=== PATIENT | male | born 1960 | race Caucasian/White ===

== ENCOUNTER 2019-01-09 01:09 | Inpatient (IN) ==
[2019-01-09] MEDS ORDERED: NS 1,000 ML IV ONE (01:42)
[2019-01-09 02:13] LABS: BASO# 0.04 X1000 (0.0-0.2); BASO% 0.2 % (0.0-0.8); EOS# 0.19 X1000 (0.0-0.7); EOS% 0.8 % (0.0-10.0); HEMOGLOBIN 15.6 g/dL (14.0-18.0); IMM GRAN# 0.13 X1000 (0.0-0.04); IMM GRAN% 0.6 % (0.0-0.5); LYMPH# 2.58 X1000 (1.2-3.4); MCH 28.7 PG (27-31); MCHC 32.5 g/dL (33-37); MCV 88.2 FL (81-99); MONO# 1.71 X1000 (0.11-0.59); MONO% 7.3 % (1.7-9.3); MPV 8.4 FL (7.4-10.4); NEUT# 18.86 X1000 (1.4-6.5); NEUT% 80.1 % (42.2-75.2); PLT 226 X1000 (130-400); RBC 5.44 XMIL (4.7-6.1); RDW 15.2 % (11.5-14.5); WBC 23.51 X1000 (4.8-10.8)
[2019-01-09 02:38] LABS: INR 1.23; PROTIME 15.7 Seconds (11.0-16.0)
[2019-01-09 02:39] LABS: PTT 30.9 Seconds (22.3-41.8)
[2019-01-09 04:11] LABS: AGAP 9; ALB/GLOB RATIO 1.1; ALBUMIN 3.4 g/dL (3.5-5.0); ALKALINE PHOSPHATASE 51 U/L (32-122); BUN 9 mg/dL (8-22); CALCIUM 8.5 mg/dL (8.8-10.2); CHLORIDE 101 mmol/L (98-107); COSMO 274; CREATININE 0.6 mg/dL (0.7-1.2); GLUCOSE 95 mg/dL (70-104); GOT 24 U/L (10-34); GPT 22 U/L (10-44); POTASSIUM 3.8 mmol/L (3.5-5.1); SODIUM 138 mmol/L (136-145); TCO2 28 mmol/L (25-35); TOTAL BILIRUBIN 0.72 mg/dL (0.20-1.00); TOTAL PROTEIN 6.4 g/dL (6.3-8.3)
[2019-01-09] MEDS ORDERED: TORADOL IV ONE (04:16)
[2019-01-09 04:17] LABS: URINE SOURCE CLEAN CATCH
[2019-01-09 04:32] LABS: BILIRUBIN URINE NEGATIVE (NEGATIVE); BLOOD URINE NEGATIVE (NEGATIVE); COLOR YELLOW; GLUCOSE URINE NEGATIVE (NEGATIVE); KETONE URINE NEGATIVE (NEGATIVE); LEUKOCYTES URINE NEGATIVE (NEGATIVE); NITRITE URINE NEGATIVE (NEGATIVE); PROTEIN URINE TRACE mg/dL (NEGATIVE); SP GRAVITY URINE 1.031; TURBIDITY URINE CLEAR (CLEAR); UROBILINOGEN URINE 4 mg/dL (NORMAL)
[2019-01-09 04:34] LABS: UR EPITHELIAL CELLS <10 /HPF (<10); URINE BACTERIA NEGATIVE /HPF; URINE RBC <10 /HPF (<10); URINE WBC <10 /HPF (<10)
[2019-01-09 04:50] LABS: UR AMPHETAMINES QUAL NONE DETECTED (NONE DETECT); UR BARBITUATES QUAL NONE DETECTED (NONE DETECT); UR BENZODIAZEPIN QUAL NONE DETECTED (NONE DETECT); UR CANNABINOIDS QUAL PRESUMPTIVE POSITIVE (NONE DETECT); UR COCAINE QUAL NONE DETECTED (NONE DETECT); UR METHADONE QUAL NONE DETECTED (NONE DETECT); UR OPIATES QUAL PRESUMPTIVE POSITIVE (NONE DETECT); UR OXYCODONE QUAL NONE DETECTED (NONE DETECT); UR PCP QUAL NONE DETECTED (NONE DETECT)
[2019-01-09] MEDS ORDERED: ROCEPHIN 1 GM in NS 50 ML IV ONE ×2 (04:50→05:00)
[2019-01-09] MEDS ORDERED: ZITHROMAX 500 MG/NS 500 MG/250 ML IVPB IV ONE (04:51)
--- NOTE | 2019-01-09 04:54 | PROVIDER DOCUMENTATION ---
This chart was entered by James Zavaleta Scribe, acting as scribe for Michael Gloria MD. HPI-General Adult - General Chief Complaint: Stroke-Like Symptoms Stated Complaint: STROKE LIKE S/S Time Seen by Provider: 01/09/19 01:22 Source: patient, EMS Allergies/Adverse Reactions: Patient Allergies Allergy/AdvReac Type Severity Reaction Status Date / Time No Known Allergies Allergy Verified 01/09/19 02:31 Home Medications: Home Medication List Medication Instructions Recorded Confirmed Last Taken Type Bisacodyl [Dulcolax] 5 mg PO DAILY tablet 08/11/17 01/09/19 01/08/19 08:00 Rx Levetiracetam [Keppra] 750 mg PO BID #60 tab 08/11/17 01/09/19 01/08/19 20:00 Rx Dronabinol [Marinol] 2.5 mg PO BID 12/21/17 01/09/19 01/08/19 20:00 History Mirtazapine 30 mg PO QHS 12/21/17 01/09/19 01/08/19 21:00 History Nicotine Patch [Nicoderm Patch] 21 mg TD DAILY patch.td24 08/30/18 01/09/19 01/08/19 09:00 Rx Folic Acid 1 mg PO DAILY 09/19/18 01/09/19 01/08/19 08:00 History Multivitamin [Multi-Day Vitamins] 1 tab PO DAILY 09/19/18 01/09/19 01/08/19 08:00 History Omeprazole [Prilosec] 40 mg PO ACB 09/19/18 01/09/19 01/08/19 06:00 History Budesonide/Formoterol Fumarate 2 puff INHALATION BID 01/09/19 01/09/19 01/08/19 20:00 History [Symbicort 80-4.5 Mcg Inhaler] Docusate Sodium [Colace] 200 mg PO BID 01/09/19 01/09/19 01/08/19 21:00 History Duloxetine HCl 30 mg PO BID 01/09/19 01/09/19 01/08/19 21:00 History Guaifenesin E.r. [Mucinex] 600 mg PO Q12HR 01/09/19 01/09/19 01/08/19 21:00 History Hydrocodone/Acetaminophen [[place] 1 ea PO Q6H PRN PRN 01/09/19 01/09/19 01/08/19 23:50 History 5-325 Tablet] Ipratropium/Albuterol Sulfate 3 ml INHALATION Q6H 01/09/19 01/09/19 01/09/19 00:00 History [Iprat-Albut 0.5-3(2.5) mg/3 ml] Lorazepam [Ativan] 0.5 mg PO QPM PRN PRN 01/09/19 01/09/19 01/08/19 18:00 History Lorazepam [Ativan] 0.5 mg PO TID 01/09/19 01/09/19 01/08/19 21:00 History Melatonin 5 mg PO QHS 01/09/19 01/09/19 01/08/19 20:00 History Prednisone 20 mg PO DAILY 01/09/19 01/09/19 01/08/19 09:00 History Protein Hydrolysate,Milk [Liquid 30 ml PO BID 01/09/19 01/09/19 01/08/19 20:00 History Protein Fortifier] Quetiapine Fumarate 25 mg PO HS 01/09/19 01/09/19 01/08/19 20:00 History - History of Present Illness -Gen Adult Nature of Presenting Problems: Pt is a 58 yom who presents to the ED via EMS with a CC of stroke-like symptoms. Pt reports his called EMS. EMS reports the pt was given a breathing treatment and a [place] at home. EMS reports the pt's stated the pt started having slurred speech and left sided weakness tonight. EMS reports the stated the pt was acting groggy and was tachycardic so she called EMS. Upon examination the pt states he isn't sure why he is here and states he is not currently in any pain or discomfort. Location of Pain/Injury: reports: none Quality of Pain: reports: none Severity: reports: mild Onset/Duration: reports: just prior to arrival, 1-3 hours ago Timing: reports: still present, improving Similar Symptoms Previously?: No Recently seen or treated by another doctor?: No Review of Systems - Adult - REVIEW OF SYSTEMS - ADULT Constitutional: reports: see HPI Eyes: reports: no symptoms reported Ears, Nose, Mouth & Throat: reports: no symptoms reported Cardiovascular: reports: see HPI Respiratory: reports: see HPI Gastrointestinal: reports: no symptoms reported Genitourinary: reports: no symptoms reported Musculoskeletal: reports: no symptoms reported Integumentary: reports: no symptoms reported Neurological: reports: see HPI Psychiatric: reports: no symptoms reported Endocrine: reports: no symptoms reported Hematologic/Lymphatic: reports: no symptoms reported Allergic/Immunologic: reports: no symptoms reported All Other Systems: Reviewed and Negative Past History - Adult - PAST MEDICAL HISTORY-ADULT Review of Records: reports: Old Records Reviewed, Nursing Assessment Review, Medications Reviewed, Social history reviewed & non-contributory. 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, spinal cord/brain injury Psychiatric: reports: denies history Endocrine/Immune: reports: denies history Other Conditions: reports: denies history - PRIOR SURGERIES/PROCEDURES Surgical/Procedure History: reports: appendectomy - IMMUNIZATION STATUS Childhood Immunizations: See Nurse Assessment Flu Vaccine: See Nurse Assessment - FAMILY HISTORY Family History: reviewed, not pertinent - SOCIAL HISTORY Smoking: non-smoker, quit greater than 1 year, cigarettes Substance Use: none/never, denies Alcohol Use Frequency: never Physical Exam-General - CONSTITUTIONAL General Appearance: alert, no apparent distress - EYES Eyes: PERRL/EOMI, pink conjunctivae - NECK Neck: non-tender, full range of motion - RESPIRATORY Respiratory: chest non-tender, lungs clear, normal breath sounds, no pleuratic chest pain, no respiratory distress, no accessory muscle use - CARDIOVASCULAR Cardiovascular: no edema, no gallop, no JVD, tachycardia - GASTROINTESTINAL (ABDOMEN) Abdominal Exam: non tender, soft - MUSCULOSKELETAL Extremity: normal range of motion, non-tender - SKIN Integumentary: normal color, warm/dry - NEUROLOGIC Neurologic: grossly normal - PSYCHIATRIC Psych/Mental Status: normal mood/affect, normal thought content, normal thought process, oriented x 3 Progress - PLAN OF CARE/RESULTS Progress/Plan/Lab Results: Vital Signs - 8 hr 01/09/19 01:15 Temperature 98.1 F Pulse Rate 115 H Respiratory Rate 21 Blood Pressure 154/103 O2 Sat by Pulse Oximetry 95 Laboratory Results - last 24 hr 01/09/19 01:13 POC Glucose 100 Orders Category Date Time Status CT HEAD W/O CONTRAST [CT] Stat Exams 01/09/19 01:06 Taken Pt has left sided weakness at baseline, pt new weakness for the patient, pt has elevated WBC, likely from PNA, will cover with abx and admit Result Diagrams: 01/09/19 01:55 01/09/19 01:55 - EKG 1 Time of EKG reading by physician:: 01:36 EKG Read and Signed by:: Michael Gloria EKG Interpretation (*Must complete 3 of following elements*): Abnormal Rate: 113 Rhythm: Sinus tachycardia Cuervo: left QRS: normal WA Interval: normal ST Wave: normal Departure - Departure Date of Disposition Decision: 01/09/19 Time of Disposition Decision: 04:53 DIAGNOSIS: Pneumonia Qualifiers: Pneumonia type: due to unspecified organism Laterality: right Lung location: upper lobe of lung Qualified Code(s): J18.1 - Lobar pneumonia, unspecified organism Disposition: ADMITTED INPATIENT 09 Certified Medical Emergency: Emergent Condition: Stable Referrals and Follow-Ups: Tyler Rojas [Primary Care Provider] - - Critical Care Note This patient required my direct & personal management of CC.: No Attestation - Physician/ DONNY Attestation Patient care was provided by Advanced Practice Provider:: No The physician spent face to face time with patient:: Yes Advanced Practice Provider documentation review:: Supervising physician onsite and consulted in the evaluation and care of this patient. The physician did have a face to face encounter with the patient. This chart was documented by the indicated scribe, (James Zavaleta, Demianibrandy) and accurately reflects the services I performed and decisions made by me, Michael Gloria MD, as attested by the provider's signature.
--- NOTE | 2019-01-09 05:15 | EKG Report ---
Test Performed on : 01/09/2019 01:35:21 AM Test Reason : Stroke like symptoms Blood Pressure : / mmHG Vent. Rate : 113 BPM Atrial Rate : 113 BPM P-R Int : 136 ms QRS Dur : 068 ms QT Int : 318 ms P-R-T Axes : 065 -41 052 degrees QTc Int : 436 ms Sinus tachycardia. Left axis deviation Abnormal ECG When compared with ECG of 17-AUG-2018 06:48, No significant change was found Unconfirmed Result
[2019-01-09] MEDS ORDERED: NORCO-5 PO PRN (05:43)
--- NOTE | 2019-01-09 06:36 | Diag Imaging Result Doc PS360 ---
CHEST-PORTABLE - 01/09/2019 INDICATION: stroke like symptoms COMPARISON: 08/27/2018 FINDINGS: Lung volumes are low similar to prior exams. There is some hazy atelectasis in the lung bases. No convincing infiltrates. Heart size and pulmonary vascularity is normal. IMPRESSION: Low lung volumes with hazy bibasilar atelectasis. Electronically signed by Andrey Sharma 01/09/2019 6:33 AM
--- NOTE | 2019-01-09 07:10 | Diag Imaging Result Doc PS360 ---
EXAM: CT HEAD W/O CONTRAST 01/09/2019 HISTORY: POSS CVA TECHNIQUE: This exam was performed using automated exposure control, adjustment of mA or kV according to patient size, and/or use of iterative reconstruction technique. COMMENT: There is extensive abnormal lucency in the white matter of both hemispheres with some cortical encephalomalacia present in the right temporal and frontal lobes. The mass effect which was present in the right parietal lobe at the time the previous study of 08/09/2017 due to a metastatic lesion is no longer present. As this study was performed without contrast, the possibility of residual metastatic disease cannot be excluded. There was only one weakly enhancing left occipital lesion on the MRI study of 11/12/2018. IMPRESSION: Diffuse leukoencephalopathy. Some cortical encephalomalacia is also present. The possibility of post radiation leukoencephalopathy cannot be excluded. Further evaluation with MRI may be desirable to exclude the possibility of coexisting or worsening metastatic disease. Electronically signed by Vasiliy Pedraza 01/09/2019 7:08 AM
--- NOTE | 2019-01-09 07:24 | Diag Imaging Result Doc PS360 ---
EXAM: CT THORAX W/O CONTRAST 01/09/2019 HISTORY: pna? TECHNIQUE: This exam was performed using automated exposure control, adjustment of mA or kV according to patient size, and/or use of iterative reconstruction technique. COMMENT: The current study is compared with the previous examination of 08/27/2018. There are some prominent aorticopulmonary window nodes which have increased in size since the previous study, the more posterior and larger of the nodes measuring in excess of 17 mm in long axis at this time compared to slightly over 13 mm previously. There is worsened bibasilar atelectasis and consolidation in the medial portion of the superior segment of the left lower lobe in comparison with the previous study. The cavitary appearing lesion anterior to the right hilum in the upper lobe is now a solid mass measuring in excess of 2.8 cm in anterior posterior dimension, compared to 2.3 cm previously. There is a somewhat lobulated nodule with possible spiculation in the left lower lobe on image 73 measuring in excess of 8 mm in diameter. This was either not present or much smaller at the time the previous examination. The appearance of the visualized portion of the abdomen has not changed significantly. There is no evidence of acute bony abnormality. IMPRESSION: 1. Right upper lobe mass. 2. Worsened mediastinal adenopathy. 3. Left lower lobe pulmonary nodule which may represent a metastasis. 4. Worsened bibasilar atelectasis and probable bronchopneumonia left lower lobe. Electronically signed by Vasiliy Pedraza 01/09/2019 7:22 AM
[2019-01-09] MEDS ORDERED: TYLENOL PO PRN (07:35)
[2019-01-09] MEDS ORDERED: VANCOMYCIN IV PER PHARMACY MISC SCH (07:35)
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
[2019-01-09] MEDS: NS 1,000 ML IV SCH (08:30)
[2019-01-09] MEDS ORDERED: NON-FORMULARY MED (Protein Hydrolysate,Milk [Liquid Protein Fortifier] 30 ML) PO SCH (09:00)
[2019-01-09] MEDS: SYMBICORT 80/4.5 MICROGM INHALER INH SCH ×2 (09:37→21:24)
[2019-01-09] MEDS: DUONEB (A & A) INH SCH ×3 (09:38→21:24)
[2019-01-09] MEDS ORDERED: VANCOMYCIN 2 GM in NS 500 ML IV ONE (10:00)
[2019-01-09] MEDS: MAXIPIME 1 GM in NS 50 ML IV SCH ×2 (10:35→23:52)
[2019-01-09] MEDS: FOLIC ACID PO SCH (10:36)
[2019-01-09] MEDS: DULCOLAX PO SCH (10:36)
[2019-01-09] MEDS: COLACE PO SCH ×2 (10:36→23:51)
[2019-01-09] MEDS: PRILOSEC PO SCH (10:36)
[2019-01-09] MEDS: PREDNISONE PO SCH (10:36)
[2019-01-09] MEDS: THERA M PLUS PO SCH (10:37)
[2019-01-09] MEDS: NICODERM PATCH TD SCH (10:37)
[2019-01-09] MEDS: KEPPRA PO SCH ×2 (10:37→23:51)
[2019-01-09] MEDS: CYMBALTA PO SCH ×2 (10:37→23:52)
[2019-01-09] MEDS: MUCINEX PO SCH ×2 (10:37→23:53)
[2019-01-09] MEDS: MARINOL PO SCH ×2 (10:37→23:53)
[2019-01-09] MEDS: LOVENOX SUBQ SCH (10:38)
[2019-01-09] MEDS: ATIVAN PO SCH ×3 (10:38→23:50)
[2019-01-09] MEDS: MELATONIN PO SCH (23:51)
[2019-01-09] MEDS: SEROQUEL PO SCH (23:52)
[2019-01-09] MEDS: REMERON PO SCH (23:52)
[2019-01-09] MEDS: VANCOMYCIN 1.5 GM in NS 250 ML IV SCH (23:52)
[2019-01-10] MEDS: NS 1,000 ML IV SCH ×2 (04:38→11:04)
[2019-01-10] MEDS: ZITHROMAX 500 MG/NS 500 MG/250 ML IVPB IV SCH (04:38)
[2019-01-10] MEDS: DUONEB (A & A) INH SCH ×4 (05:00→22:04)
[2019-01-10] MEDS: PRILOSEC PO SCH (06:36)
[2019-01-10 07:09] LABS: BASO# 0.02 X1000 (0.0-0.2); BASO% 0.2 % (0.0-0.8); EOS# 0.17 X1000 (0.0-0.7); EOS% 1.6 % (0.0-10.0); HEMATOCRIT 40.7 % (42.0-52.0); IMM GRAN# 0.06 X1000 (0.0-0.04); IMM GRAN% 0.6 % (0.0-0.5); LYMPH# 1.55 X1000 (1.2-3.4); LYMPH% 14.3 % (20.5-51.1); MCHC 31.9 g/dL (33-37); MCV 90.8 FL (81-99); MONO# 0.99 X1000 (0.11-0.59); MONO% 9.1 % (1.7-9.3); MPV 8.5 FL (7.4-10.4); NEUT# 8.07 X1000 (1.4-6.5); NEUT% 74.2 % (42.2-75.2); PLT 214 X1000 (130-400); RBC 4.48 XMIL (4.7-6.1); RDW 15.1 % (11.5-14.5); WBC 10.86 X1000 (4.8-10.8)
[2019-01-10 07:36] LABS: AGAP 10; BUN 8 mg/dL (8-22); CALCIUM 8.4 mg/dL (8.8-10.2); CHLORIDE 107 mmol/L (98-107); COSMO 277; CREATININE 0.4 mg/dL (0.7-1.2); ESTIMATED GFR > 60; GLUCOSE 94 mg/dL (70-104); POTASSIUM 3.6 mmol/L (3.5-5.1); SODIUM 140 mmol/L (136-145); TCO2 23 mmol/L (25-35)
[2019-01-10] MEDS: SYMBICORT 80/4.5 MICROGM INHALER INH SCH ×2 (08:33→22:04)
[2019-01-10] MEDS: MUCINEX PO SCH ×2 (10:52→22:27)
[2019-01-10] MEDS: COLACE PO SCH ×2 (10:52→22:27)
[2019-01-10] MEDS: KEPPRA PO SCH ×2 (10:52→22:28)
[2019-01-10] MEDS: ATIVAN PO SCH ×2 (10:53→14:21)
[2019-01-10] MEDS: DULCOLAX PO SCH (10:53)
[2019-01-10] MEDS: FOLIC ACID PO SCH (10:53)
[2019-01-10] MEDS: THERA M PLUS PO SCH (10:53)
[2019-01-10] MEDS: PREDNISONE PO SCH (10:53)
[2019-01-10] MEDS: MAXIPIME 1 GM in NS 50 ML IV SCH ×2 (10:53→22:26)
[2019-01-10] MEDS: CYMBALTA PO SCH ×2 (10:53→22:27)
[2019-01-10] MEDS: LOVENOX SUBQ SCH (10:53)
[2019-01-10] MEDS: NICODERM PATCH TD SCH (10:54)
[2019-01-10] MEDS: MARINOL PO SCH (11:04)
[2019-01-10] MEDS: VANCOMYCIN 1.5 GM in NS 250 ML IV SCH ×2 (12:55→22:30)
--- NOTE | 2019-01-10 18:22 | PROGRESS NOTE ---
DATE: 01/10/2019 SUBJECTIVE: Patient reports feeling fine. Denies any fever or chills. She reports of breathing much better. OBJECTIVE: Vital Signs: Temperature 97.8, heart rate 74, respiratory 15, blood pressure 154/73, O2 saturation 100% on 2 L nasal cannula. General Examination: This is a 58-year-old male lying in bed in no acute distress. HEENT: Head is normocephalic, atraumatic. Neck: No JVD noted. No carotid bruits. No lymphadenopathy. No thyromegaly. Cardiovascular: S1, S2 heard. No murmurs, gallops, or rubs. Regular rate and rhythm. Respiratory: Coarse breath sounds noted in both pulmonary bases. Patient not using any accessory muscles or having work of breathing. Abdomen: Soft, nontender to palpation. Bowel sounds present. No organomegaly. Extremities: No clubbing, cyanosis, or edema. Peripheral pulses present in both legs. Neurological: Patient is alert and oriented x3. Moves 4 extremities. LABORATORY DATA: Reviewed. ASSESSMENT AND PLAN: 1. Left lower lobe bronchopneumonia. The patient's white cell count is getting better. The patient is on broad-spectrum antibiotics with cefepime and vancomycin. We will continue with the same management. We will continue with DuoNeb and current antibiotic management. 2. Chronic obstructive pulmonary disease with mild exacerbation. We will continue with breathing treatments every 4 hours as scheduled. 3. The patient has history of lung cancer. The CT of the chest showed a right upper lobe mass that apparently has increased inside according to the chest CT. So, I prefer to consult his primary oncologist, Dr. Askew, and we will go from there. 4. Seizure disorder. The patient continues to be on home medications. In this case Keppra. We will continue to monitor. cc: Carlos Sears MD
[2019-01-10] MEDS: REMERON PO SCH (22:27)
[2019-01-10] MEDS: SEROQUEL PO SCH (22:27)
[2019-01-10] MEDS: MELATONIN PO SCH (22:27)
[2019-01-11] MEDS: ATIVAN PO SCH ×2 (03:47→09:13)
[2019-01-11] MEDS: NS 1,000 ML IV SCH (03:47)
[2019-01-11] MEDS: MARINOL PO SCH ×2 (03:48→09:13)
[2019-01-11] MEDS: DUONEB (A & A) INH SCH ×2 (03:51→09:28)
[2019-01-11] MEDS: ZITHROMAX 500 MG/NS 500 MG/250 ML IVPB IV SCH (06:14)
[2019-01-11] MEDS: PRILOSEC PO SCH (06:56)
[2019-01-11 07:02] LABS: BASO# 0.02 X1000 (0.0-0.2); BASO% 0.2 % (0.0-0.8); EOS# 0.14 X1000 (0.0-0.7); EOS% 1.7 % (0.0-10.0); HEMATOCRIT 42.4 % (42.0-52.0); HEMOGLOBIN 13.4 g/dL (14.0-18.0); IMM GRAN# 0.06 X1000 (0.0-0.04); IMM GRAN% 0.7 % (0.0-0.5); LYMPH# 1.63 X1000 (1.2-3.4); LYMPH% 19.7 % (20.5-51.1); MCH 28.4 PG (27-31); MCHC 31.6 g/dL (33-37); MCV 89.8 FL (81-99); MONO# 0.63 X1000 (0.11-0.59); MONO% 7.6 % (1.7-9.3); MPV 8.5 FL (7.4-10.4); NEUT# 5.78 X1000 (1.4-6.5); NEUT% 70.1 % (42.2-75.2); PLT 237 X1000 (130-400); RBC 4.72 XMIL (4.7-6.1); RDW 14.9 % (11.5-14.5); WBC 8.26 X1000 (4.8-10.8)
[2019-01-11 07:19] LABS: AGAP 11; BUN 5 mg/dL (8-22); CALCIUM 8.8 mg/dL (8.8-10.2); CHLORIDE 107 mmol/L (98-107); COSMO 283; CREATININE 0.4 mg/dL (0.7-1.2); ESTIMATED GFR > 60; GLUCOSE 80 mg/dL (70-104); POTASSIUM 3.4 mmol/L (3.5-5.1); SODIUM 144 mmol/L (136-145); TCO2 26 mmol/L (25-35)
[2019-01-11] MEDS: THERA M PLUS PO SCH (09:13)
[2019-01-11] MEDS: DULCOLAX PO SCH (09:13)
[2019-01-11] MEDS: CYMBALTA PO SCH (09:13)
[2019-01-11] MEDS: COLACE PO SCH (09:13)
[2019-01-11] MEDS: KEPPRA PO SCH (09:13)
[2019-01-11] MEDS: PREDNISONE PO SCH (09:14)
[2019-01-11] MEDS: NICODERM PATCH TD SCH (09:14)
[2019-01-11] MEDS: MUCINEX PO SCH (09:14)
[2019-01-11] MEDS: LOVENOX SUBQ SCH (09:14)
[2019-01-11] MEDS: FOLIC ACID PO SCH (09:14)
[2019-01-11] MEDS: MAXIPIME 1 GM in NS 50 ML IV SCH (09:14)
[2019-01-11] MEDS: SYMBICORT 80/4.5 MICROGM INHALER INH SCH (09:28)
[2019-01-11 11:34] VITALS: BP 141/93
--- NOTE | 2019-01-11 12:06 | DISCHARGE SUMMARY ---
ADMISSION DATE: 01/09/2019 DISCHARGE DATE: 01/11/2019 DIAGNOSES: 1. Probable left lower lobe bronchopneumonia. 2. Chronic obstructive pulmonary disease with mild exacerbation. 3. History of lung cancer, followed by Dr. Askew. 4. Seizure disorder. DIAGNOSTICS: 1. CT of the head revealed diffuse co-encephalopathy. Some cortical encephalomalacia is present. Possibility of post radiation leukoencephalopathy cannot be excluded. 2. Chest x-ray revealed low lung volumes with hazy bibasilar atelectasis. 3. CT of the chest revealed right upper lobe mass, worsened mediastinal adenopathy, left lower lobe pulmonary nodule which may represent a metastasis, worsened bibasilar atelectasis and probable bronchopneumonia left lower lobe. MICROBIOLOGY: 1. Blood cultures revealed no growth after 48 hours. 2. Sputum culture revealed normal camille . HOSPITAL COURSE: Mr. Magallon presented to the emergency room with hallucinations, seeing people that were not there with some slurred speech and left-sided weakness reported prior to arrival to the hospital. He was found to have left lower lobe bronchopneumonia. He was initially treated with cefepime and vancomycin and is being discharged on Omnicef. He was in a mild COPD exacerbation for which we gave DuoNeb q.4 hours. He has improved, reports feeling fine, breathing much better and is ready for discharge. DISCHARGE PHYSICAL EXAMINATION: Vital signs: Blood pressure is 141/90 with heart rate of 106, respirations 22, temperature 97.9 degrees oral with saturations 95 to 99 percent on 2 L nasal cannula. Cardiovascular: Regular rate and rhythm. S1 and S2 appreciated. No JVD. He has no lower extremity edema with peripheral pulses palpable x4 extremities. Pulmonary: Coarse breath sounds noted throughout. Chest rises and falls symmetrically with respiration. Gastrointestinal: Abdomen is soft, nontender, nondistended with bowel sounds in all 4 quadrants. Neurologic: Alert and oriented x3. Skin: Warm and dry. DISCHARGE MEDICATIONS: 1. Melatonin 5 mg p.o. at bedtime. 2. Mirtazapine 30 mg p.o. at bedtime. 3. Mucinex 600 mg p.o. q.12 hours. 4. Colace 200 mg p.o. b.i.d. 5. Duloxetine 30 mg p.o. b.i.d. 6. Folic acid 1 mg p.o. daily. 7. Marinol 2.5 p.o. b.i.d. 8. Multivitamin 1 daily. 9. Prednisone 20 mg p.o. daily. 10. Prilosec 40 mg p.o. daily. 11. Seroquel 25 mg p.o. at bedtime. 12. Ativan 0.5 mg p.o. q.p.m. 13. Omnicef 300 mg p.o. b.i.d. x7 days. 14. Keppra 750 mg p.o. b.i.d. 15. Symbicort 80/4.5 two puffs b.i.d. FOLLOWUP: 1. Dr. Ko Askew. He is to call the office to schedule appointment in 1 [address] Tyler Rojas, primary care provider. He is to call to schedule an appointment in the next 1 to 2 weeks. DISCHARGE INSTRUCTIONS: He was instructed to call to be seen sooner or return to the ER for any syncope, dizziness, chest pain, palpitations, increasing shortness of breath, temperature greater than 101 degrees, any nausea, vomiting, diarrhea, constipation, black or bloody vomitus or stools, hematuria, dysuria, frequency, urgency or for any questions or concerns that he may. DISCHARGE DISPOSITION: He is being discharged back to [facility] where he is a long-term resident in stable condition with family members present. TIME SPENT: This is a greater than 30 minute discharge. Dictated by RANDOLPH Nuñez for Carlos Sears MD Addendum: Patient seen and examined by myself. Agree with RANDOLPH note. It reflects my assessment and plan. Patient is being discharged in stable condition. Will be seen by Dr. Askew in a week. cc: RANDOLPH Nuñez MD [facility]
[2019-01-11] MEDS: VANCOMYCIN 1.5 GM in NS 250 ML IV SCH (14:44)
== END 2019-01-11 15:25 | DRG 194 ==
LOC: SUPCPDRO → ED 01:09 → SUATTDRO 07:26 → 3N 07:26
PROVIDERS: ATTEND Internal Medicine

== ENCOUNTER 2019-06-01 14:11 | Inpatient (IN) ==
--- NOTE | 2019-06-01 15:25 | Diag Imaging Result Doc PS360 ---
CHEST-PORTABLE - 06/01/2019 INDICATION: AMS COMPARISON: 01/09/2019 FINDINGS: There is bilateral hilar lymphadenopathy, worsened since prior. Heart size is normal. No pneumothorax or large pleural effusion. IMPRESSION: Bilateral hilar lymphadenopathy, worsened since prior. Electronically signed by Andrey Sharma 06/01/2019 3:23 PM
[2019-06-01 15:51] LABS: EOS# 0.03 X1000 (0.0-0.7); EOS% 0.1 % (0.0-10.0); HEMATOCRIT 45.2 % (42.0-52.0); HEMOGLOBIN 13.9 g/dL (14.0-18.0); LYMPH# 0.98 X1000 (1.2-3.4); LYMPH% 1.9 % (20.5-51.1); MCH 28.4 PG (27-31); MCHC 30.8 g/dL (33-37); MCV 92.4 FL (81-99); MONO# 2.45 X1000 (0.11-0.59); MONO% 4.8 % (1.7-9.3); MPV 8.7 FL (7.4-10.4); PLT 255 X1000 (130-400); RBC 4.89 XMIL (4.7-6.1); RDW 15.8 % (11.5-14.5); WBC 51.15 X1000 (4.8-10.8)
[2019-06-01 16:14] LABS: BANDS 2 % (0-1); LARGE PLATELETS OCCASIONAL; MONO 4 % (1-9); SEGS 92 % (42-75)
[2019-06-01 16:15] LABS: ANISOCYTOSIS OCCASIONAL
--- NOTE | 2019-06-01 16:41 | Diag Imaging Result Doc PS360 ---
CT HEAD W/O CONTRAST - 06/01/2019 INDICATION: AMS COMPARISON: 01/09/2019 FINDINGS: There is stable advanced cerebral white matter hypodensity most compatible with chronic microvascular ischemia. No intracranial mass or hemorrhage. The skull is intact. There is significant multifocal sinusitis. There is a stable sideplates at the left lateral orbital rim. There is fluid in the right middle ear. There is also opacification of the external auditory canal on the right. IMPRESSION: No acute intracranial abnormality. This exam was performed using automated exposure control, adjustment of mA or kV according to patient size, and/or use of iterative reconstruction technique Electronically signed by Andrey Sharma 06/01/2019 4:39 PM
[2019-06-01 16:46] LABS: INR 1.08; PROTIME 14.2 Seconds (11.0-16.0)
[2019-06-01 16:47] LABS: PTT 28.1 Seconds (22.3-41.8)
[2019-06-01 16:51] LABS: AGAP 12; ALBUMIN 3.5 g/dL (3.5-5.0); ALKALINE PHOSPHATASE 209 U/L (32-122); BUN 12 mg/dL (8-22); CALCIUM 9.1 mg/dL (8.8-10.2); CHLORIDE 97 mmol/L (98-107); CK PROFILE 29 U/L (24-204); COSMO 277; CREATININE 0.5 mg/dL (0.7-1.2); ESTIMATED GFR > 60; GLUCOSE 202 mg/dL (70-104); GOT 19 U/L (10-34); GPT 10 U/L (10-44); POTASSIUM 4.4 mmol/L (3.5-5.1); SODIUM 136 mmol/L (136-145); TCO2 27 mmol/L (25-35); TOTAL BILIRUBIN 0.35 mg/dL (0.20-1.00); TOTAL PROTEIN 6.9 g/dL (6.3-8.3)
[2019-06-01 17:15] LABS: URINE SOURCE CATH
[2019-06-01 17:18] LABS: BILIRUBIN URINE NEGATIVE (NEGATIVE); BLOOD URINE NEGATIVE (NEGATIVE); COLOR YELLOW; GLUCOSE URINE 300 mg/dL (NEGATIVE); KETONE URINE 20 mg/dL (NEGATIVE); LEUKOCYTES URINE NEGATIVE (NEGATIVE); NITRITE URINE NEGATIVE (NEGATIVE); PROTEIN URINE TRACE mg/dL (NEGATIVE); SP GRAVITY URINE 1.031; TURBIDITY URINE CLEAR (CLEAR); UROBILINOGEN URINE NORMAL (NORMAL)
[2019-06-01 17:19] LABS: UR EPITHELIAL CELLS <10 /HPF (<10); URINE BACTERIA NEGATIVE /HPF; URINE RBC <10 /HPF (<10); URINE WBC <10 /HPF (<10)
[2019-06-01] MEDS ORDERED: ROCEPHIN 1 GM in NS 50 ML IV ONE (17:46)
[2019-06-01] MEDS ORDERED: DUONEB (A & A) INH ONE (18:00)
--- NOTE | 2019-06-01 18:27 | PROVIDER DOCUMENTATION ---
This chart was entered by Lupe Cabello Scribe, acting as scribe for Drew Byrd MD. HPI-General Adult - General Chief Complaint: Altered Mental Status Stated Complaint: AMS Time Seen by Provider: 06/01/19 14:46 Source: patient, RN/MD Allergies/Adverse Reactions: Patient Allergies Allergy/AdvReac Type Severity Reaction Status Date / Time No Known Allergies Allergy Verified 01/09/19 02:31 Home Medications: Home Medication List Medication Instructions Recorded Confirmed Last Taken Type Bisacodyl [Dulcolax] 5 mg PO DAILY tablet 08/11/17 06/01/19 01/08/19 08:00 Rx Levetiracetam [Keppra] 750 mg PO BID #60 tab 08/11/17 06/01/19 01/08/19 20:00 Rx Dronabinol [Marinol] 2.5 mg PO BID 12/21/17 06/01/19 01/08/19 20:00 History Mirtazapine 30 mg PO QHS 12/21/17 06/01/19 01/08/19 21:00 History Nicotine Patch [Nicoderm Patch] 21 mg TD DAILY patch.td24 08/30/18 06/01/19 01/08/19 09:00 Rx Folic Acid 1 mg PO DAILY 09/19/18 06/01/19 01/08/19 08:00 History Multivitamin [Multi-Day Vitamins] 1 tab PO DAILY 09/19/18 06/01/19 01/08/19 08:00 History Omeprazole [Prilosec] 40 mg PO ACB 09/19/18 06/01/19 01/08/19 06:00 History Budesonide/Formoterol Fumarate 2 puff INHALATION BID 01/09/19 06/01/19 01/08/19 20:00 History [Symbicort 80-4.5 Mcg Inhaler] Docusate Sodium [Colace] 200 mg PO BID 01/09/19 06/01/19 01/08/19 21:00 History Duloxetine HCl 30 mg PO BID 01/09/19 06/01/19 01/08/19 21:00 History Guaifenesin E.r. [Mucinex] 600 mg PO Q12HR 01/09/19 06/01/19 01/08/19 21:00 History Ipratropium/Albuterol Sulfate 3 ml INHALATION Q6H 01/09/19 06/01/19 01/09/19 00:00 History [Iprat-Albut 0.5-3(2.5) mg/3 ml] Melatonin 5 mg PO QHS 01/09/19 06/01/19 01/08/19 20:00 History Prednisone 20 mg PO DAILY 01/09/19 06/01/19 01/08/19 09:00 History Protein Hydrolysate,Milk [Liquid 30 ml PO BID 01/09/19 06/01/19 01/08/19 20:00 History Protein Fortifier] Quetiapine Fumarate 25 mg PO HS 01/09/19 06/01/19 01/08/19 20:00 History Cefdinir 300 mg PO BID #14 cap 01/11/19 06/01/19 Unknown Rx Hydrocodone/Acetaminophen [[place] 1 tab PO Q6H PRN PRN #20 tab 01/11/19 06/01/19 Unknown Rx 5-325 Tablet] Lorazepam [Ativan] 0.5 mg PO QPM PRN PRN #60 tab 01/11/19 06/01/19 Unknown Rx - History of Present Illness -Gen Adult Nature of Presenting Problems: pt is a 59 yowm c/o rn sts pt is from [facility] [place], had fever and was given tylenol and became combative and altered. pt was given .5 narcan and returned to baseline. 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 pt has hx of seizures and denies seizure today. Onset/Duration: reports: just prior to arrival Timing: reports: gone now Context/Activities at Onset: reports: none Modifying Factors: improves with: nothing Associated Symptoms: reports: fever/chills, other (ams and combative. has resolved in er.) Review of Systems - Adult - REVIEW OF SYSTEMS - ADULT Constitutional: reports: see HPI, fever. denies: chills, fatique, night sweats Eyes: reports: no symptoms reported Ears, Nose, Mouth & Throat: reports: no symptoms reported Cardiovascular: reports: no symptoms reported Respiratory: reports: no symptoms reported Gastrointestinal: reports: no symptoms reported Genitourinary: reports: no symptoms reported Musculoskeletal: reports: no symptoms reported Integumentary: reports: no symptoms reported Neurological: reports: no symptoms reported Psychiatric: reports: see HPI, other (ams and combative). denies: anxiety, insomnia, suicidal thoughts Endocrine: reports: no symptoms reported Hematologic/Lymphatic: reports: no symptoms reported Allergic/Immunologic: reports: no symptoms reported All Other Systems: Reviewed and Negative Past History - Adult - PAST MEDICAL HISTORY-ADULT Review of Records: reports: Nursing Assessment Review, Medications Reviewed, Social history reviewed & non-contributory. 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, spinal cord/brain injury Psychiatric: reports: anxiety Endocrine/Immune: reports: denies history Other Conditions: reports: denies history - PRIOR SURGERIES/PROCEDURES Surgical/Procedure History: reports: appendectomy - IMMUNIZATION STATUS Childhood Immunizations: See Nurse Assessment Flu Vaccine: See Nurse Assessment - FAMILY HISTORY Family History: reviewed, not pertinent - SOCIAL HISTORY Smoking: non-smoker Substance Use: none/never Physical Exam-General - PHYSICAL EXAM-ADULT Initial Vital Signs Reviewed: Yes - CONSTITUTIONAL General Appearance: alert, no apparent distress, slow to respond. negative: cachetic, anxious, lethargic - EYES Eyes: PERRL/EOMI, pink conjunctivae - HEAD, EARS, NOSE, MOUTH & THROAT HENMT: normocephalic/atraumatic, moist mucous membranes, normal ENT inspection - NECK Neck: non-tender, full range of motion, supple, normal inspection - RESPIRATORY Respiratory: chest non-tender, lungs clear, normal breath sounds - CARDIOVASCULAR Cardiovascular: normal peripheral pulses, regular rate, rhythm - GASTROINTESTINAL (ABDOMEN) Abdominal Exam: normal bowel sounds, non tender, soft - LYMPHATIC Lymphatic: no adenopathy - MUSCULOSKELETAL Back Exam: normal inspection Extremity: normal range of motion, non-tender, normal inspection, no pedal edema , no calf tenderness, normal capillary refill, pelvis stable. negative: deformity, pedal edema, slow capillary refill, swelling Peripheral Pulses: radial (R): 2+, radial (L): 2+ - SKIN Integumentary: normal color, normal turgor, warm/dry - NEUROLOGIC Neurologic: ore crusher II-XII nml as tested, grossly normal, no motor/sensory deficits - PSYCHIATRIC Psych/Mental Status: normal mood/affect, normal thought content, normal thought process, oriented x 3. negative: anxious, disheveled, depressed affect Progress - PLAN OF CARE/RESULTS Progress/Plan/Lab Results: Vital Signs - 8 hr 06/01/19 14:24 Temperature 98.1 F Pulse Rate 125 H Respiratory Rate 18 Blood Pressure 112/86 O2 Sat by Pulse Oximetry 89 L Orders Category Date Time Status CHEST-PORTABLE [RAD] Stat Exams 06/01/19 14:[address] HEAD W/O CONTRAST [CT] Stat Exams 06/01/19 14:51 Ordered AMMONIA [CHEM] Stat Lab 06/01/19 14:50 Uncollected BASIC METABOLIC PANEL [CHEM] Stat Lab 06/01/19 14:50 Ordered CBC WITH ELECTRONIC DIFF [HEME] Stat Lab 06/01/19 14:50 Uncollected URINALYSIS W/POSS RFLX CULT [URINALYSIS] Stat Lab 06/01/19 14:51 Uncollected Result Diagrams: 06/01/19 15:33 06/01/19 15:33 - REASSESSMENT Reassessment #1 Time Reassessed: 17:29 Status: unchanged (CT HEAD UNREMARKABLE. CXR W/ WORSENED HILAR ADENOPATHY BUT NO INFILTRATES. MARKED LEUKOCYOSIS IS NEW AND NEVER THIS HIGH ON PRIOR LABS. STILL MILD HYPOXIC AND MILD WHEEZING ON 2 LITER NASAL O2. ALBUTEROL AND ROCEPHIN ADDED. [facility] HOSPITALIST.) - EKG 1 Time of EKG reading by physician:: 16:53 EKG Read and Signed by:: Drew Byrd EKG Interpretation (*Must complete 3 of following elements*): Abnormal Rate: 111 (possible LAE ) Rhythm: ST Diana: left QRS: normal AR Interval: normal ST Wave: normal - XRAY 1 XRAY Study: Chest Impression: Abnormal, See EMR Report ( CHEST-PORTABLE - 06/01/2019 INDICATION: AMS COMPARISON: 01/09/2019 FINDINGS: There is bilateral hilar lymphadenopathy, worsened since prior. Heart size is normal. No pneumothorax or large pleural effusion. IMPRESSION: Bilateral hilar lymphadenopathy, worsened since prior. Electronically signed by Andrey Sharma 06/01/2019 3:23 PM) Comparison with other Films: changes noted - CT/MRI 1 CT Study: Head Impression: See EMR Report ( CT HEAD W/O CONTRAST - 06/01/2019 INDICATION: AMS COMPARISON: 01/09/2019 FINDINGS: There is stable advanced cerebral white matter hypodensity most compatible with chronic microvascular ischemia. No intracranial mass or hemorrhage. The skull is intact. There is significant multifocal sinusitis. There is a stable sideplates at the left lateral orbital rim. There is fluid in the right middle ear. There is also opacification of the external auditory canal on the right. IMPRESSION: No acute intracranial abn ormality. This exam was performed using automated exposure control, adjustment of mA or kV according to patient size, and/or use of iterative reconstruction technique Electronically signed by Andrey Sharma 06/01/2019 4:39 PM) - CONSULTS/PCP/HOSPITALIST Notification #1 *Consult/PCP/Hospitalist*: DR TAMEZ Time Discussed: 18:24 Consult Disposition: Admit Departure - Departure Date of Disposition Decision: 06/01/19 Time of Disposition Decision: 18:24 DIAGNOSIS: Hypoxemia requiring supplemental oxygen Leukocytosis Qualifiers: Leukocytosis type: lymphocytosis Qualified Code(s): D72.820 - Lymphocytosis (symptomatic) Disposition: ADMITTED INPATIENT 09 Certified Medical Emergency: Emergent Condition: Fair Referrals and Follow-Ups: Tyler Rojas [Primary Care Provider] - - Critical Care Note This patient required my direct & personal management of CC.: No Attestation - Physician/ DONNY Attestation Patient care was provided by Advanced Practice Provider:: No The physician spent face to face time with patient:: Yes Advanced Practice Provider documentation review:: Supervising physician onsite and consulted in the evaluation and care of this patient. The physician did have a face to face encounter with the patient. This chart was documented by the indicated scribe, (Lupe Cabello Scribe) and accurately reflects the services I performed and decisions made by me, Drew Byrd MD, as attested by the provider's signature.
[2019-06-01] MEDS ORDERED: XOPENEX NEB INH ONE (21:19)
[2019-06-01] MEDS ORDERED: ATROVENT NEB INH ONE (21:19)
[2019-06-01] MEDS ORDERED: NS NEB INH SCH ×2 (21:30→23:18)
[2019-06-01] MEDS ORDERED: VANCOMYCIN IV PER PHARMACY MISC SCH (22:00)
[2019-06-01] MEDS ORDERED: VANCOMYCIN 1,950 MG in NS 500 ML IV ONE (23:00)
[2019-06-01] MEDS ORDERED: ZOFRAN IV PRN (23:18)
[2019-06-01] MEDS ORDERED: NICODERM PATCH TD PRN (23:18)
[2019-06-01] MEDS ORDERED: MUCINEX PO SCH (23:18)
[2019-06-01] MEDS ORDERED: TESSALON PO PRN (23:18)
[2019-06-01] MEDS ORDERED: TYLENOL PO PRN (23:18)
--- NOTE | 2019-06-02 00:19 | EKG Report ---
Test Performed on : 06/01/2019 11:49:59 PM Test Reason : tachy Blood Pressure : / mmHG Vent. Rate : 136 BPM Atrial Rate : 136 BPM P-R Int : 128 ms QRS Dur : 068 ms QT Int : 296 ms P-R-T Axes : 074 -63 075 degrees QTc Int : 445 ms Sinus tachycardia. Left anterior fascicular block Cannot rule out Anterior infarct , age undetermined Abnormal ECG When compared with ECG of 01-JUN-2019 16:47, (Unconfirmed) No significant change was found Confirmed by Devendra JOHNSON, Bharat Duffy ([id number]) on 06/03/2019 5:56:53 PM
[2019-06-02] MEDS: COLACE PO SCH ×3 (00:31→21:19)
[2019-06-02] MEDS: MELATONIN PO SCH ×2 (00:31→21:19)
[2019-06-02] MEDS: MUCINEX PO SCH ×3 (00:31→21:19)
[2019-06-02] MEDS: CYMBALTA PO SCH ×3 (00:31→21:19)
[2019-06-02] MEDS: KEPPRA PO SCH ×3 (00:31→21:19)
[2019-06-02] MEDS: MAXIPIME 2 GM/NS 2 GM/100 ML IVPB IV SCH ×4 (02:23→21:18)
[2019-06-02] MEDS: XOPENEX NEB INH SCH ×4 (03:14→22:56)
[2019-06-02] MEDS: ATROVENT NEB INH SCH ×4 (03:14→22:56)
[2019-06-02] MEDS: PRILOSEC PO SCH (06:32)
[2019-06-02 06:33] LABS: ALLEN TEST YES; BE 3.5 mmoll (-3.0-3.0); BLOOD TYPE ARTERIAL; HCO3-(ACT) 27.6 mmoll (20.0-26.0); MODALITY CANNULA; O2(CT) 18.8 mL/dL (15.0-23.0); O2HB 95.1 % (95.0-99.0); PCO2(98.6) 40 mmHg (35-45); PO2(98.6) 89 mmHg (60-100); SAMPLE BLOOD; SAO2 97.5 % (95.0-100.0); pH(98.6) 7.45 (7.35-7.45)
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
[2019-06-02 07:45] LABS: EOS# 0.08 X1000 (0.0-0.7); EOS% 0.1 % (0.0-10.0); HEMATOCRIT 42.4 % (42.0-52.0); HEMOGLOBIN 13.4 g/dL (14.0-18.0); LYMPH# 1.85 X1000 (1.2-3.4); LYMPH% 3.2 % (20.5-51.1); MCH 29.1 PG (27-31); MCHC 31.6 g/dL (33-37); MONO# 3.45 X1000 (0.11-0.59); MPV 8.6 FL (7.4-10.4); PLT 265 X1000 (130-400); RBC 4.61 XMIL (4.7-6.1); RDW 15.7 % (11.5-14.5)
[2019-06-02 07:57] LABS: HEMOGLOBIN A1C 5.7 % (4.8-6.0)
[2019-06-02 07:59] LABS: AGAP 11; ALB/GLOB RATIO 0.9; ALBUMIN 3.2 g/dL (3.5-5.0); ALKALINE PHOSPHATASE 219 U/L (32-122); BUN 12 mg/dL (8-22); CALCIUM 8.8 mg/dL (8.8-10.2); CHLORIDE 97 mmol/L (98-107); COSMO 268; CREATININE 0.6 mg/dL (0.7-1.2); ESTIMATED GFR > 60; GLUCOSE 106 mg/dL (70-104); GOT 22 U/L (10-34); GPT 10 U/L (10-44); POTASSIUM 3.9 mmol/L (3.5-5.1); SODIUM 134 mmol/L (136-145); TCO2 26 mmol/L (25-35); TOTAL BILIRUBIN 0.36 mg/dL (0.20-1.00); TOTAL PROTEIN 6.6 g/dL (6.3-8.3)
--- NOTE | 2019-06-02 08:21 | Diag Imaging Result Doc PS360 ---
ABDOMEN FLAT/UPRIGHT - 06/01/2019 INDICATION: Abdominal Pain COMPARISON: 07/31/2017 FINDINGS: There are some hazy interstitial opacities in the lung bases. These may represent infiltrates or fibrosis. There is a nonobstructive bowel gas pattern. No significant constipation. No free air. There is a calcification projecting over the left renal shadow measuring about 5 mm. IMPRESSION: Possible left renal stone. Electronically signed by Andrey Sharma 06/02/2019 8:19 AM
[2019-06-02 08:58] LABS: ANISOCYTOSIS 1+; BANDS 2 % (0-1); HOWELL-JOLLY BODIES OCCASIONAL; HYPOCHROM 1+; LYMPHS 4 % (21-51); MONO 5 % (1-9); SEGS 87 % (42-75)
[2019-06-02 09:00] LABS: WBC 57.24 X1000 (4.8-10.8)
[2019-06-02] MEDS ORDERED: NON-FORMULARY MED (Protein Hydrolysate,Milk [Liquid Protein Fortifier] 30 ML) PO SCH (09:00)
[2019-06-02] MEDS: DULCOLAX PO SCH (09:12)
[2019-06-02] MEDS: FOLIC ACID PO SCH (09:12)
[2019-06-02] MEDS: THERA M PLUS PO SCH (09:12)
[2019-06-02] MEDS: SOLU-MEDROL IV SCH ×2 (09:14→15:27)
[2019-06-02] MEDS: VANCOMYCIN 1,450 MG in NS 250 ML IV SCH (15:30)
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
[2019-06-02] MEDS: MYCOSTATIN SUSP PO SCH ×2 (18:10→21:19)
[2019-06-02] MEDS: REMERON PO SCH (21:19)
[2019-06-02] MEDS: SEROQUEL PO SCH (21:19)
[2019-06-03] MEDS: SOLU-MEDROL IV SCH ×3 (00:19→16:10)
[2019-06-03] MEDS: XOPENEX NEB INH SCH ×4 (03:09→22:19)
[2019-06-03] MEDS: ATROVENT NEB INH SCH ×4 (03:10→22:19)
[2019-06-03] MEDS: VANCOMYCIN 1,450 MG in NS 250 ML IV SCH (03:39)
[2019-06-03] MEDS: PRILOSEC PO SCH (06:11)
--- NOTE | 2019-06-03 07:41 | EKG Report ---
Test Performed on : 06/01/2019 4:47:23 PM Test Reason : ED. NO EKG ORDER FOR MUSE Blood Pressure : / mmHG Vent. Rate : 111 BPM Atrial Rate : 111 BPM P-R Int : 132 ms QRS Dur : 072 ms QT Int : 328 ms P-R-T Axes : 069 -31 069 degrees QTc Int : 446 ms Sinus tachycardia. Possible Left atrial enlargement Left axis deviation Abnormal ECG When compared with ECG of 09-JAN-2019 01:35, No significant change was found Unconfirmed Result
[2019-06-03] MEDS: MUCINEX PO SCH ×2 (08:17→21:56)
[2019-06-03] MEDS: KEPPRA PO SCH ×2 (08:18→21:56)
[2019-06-03] MEDS: FOLIC ACID PO SCH (08:18)
[2019-06-03] MEDS: COLACE PO SCH ×2 (08:20→21:56)
[2019-06-03] MEDS: THERA M PLUS PO SCH (08:20)
[2019-06-03] MEDS: DULCOLAX PO SCH (08:20)
[2019-06-03] MEDS: CYMBALTA PO SCH ×2 (08:20→21:58)
[2019-06-03] MEDS: MYCOSTATIN SUSP PO SCH ×4 (08:21→21:56)
[2019-06-03] MEDS: MAXIPIME 2 GM/NS 2 GM/100 ML IVPB IV SCH ×2 (08:25→21:56)
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
[2019-06-03] MEDS: VANCOMYCIN 1,650 MG in NS 250 ML IV SCH (16:10)
[2019-06-03] MEDS: MELATONIN PO SCH (21:56)
[2019-06-03] MEDS: REMERON PO SCH (21:56)
[2019-06-03] MEDS: SEROQUEL PO SCH (21:56)
[2019-06-04] MEDS: SOLU-MEDROL IV SCH ×3 (00:22→16:08)
[2019-06-04] MEDS: GEODON IM PRN (01:49)
[2019-06-04] MEDS: STERILE WATER INJ. INJ PRN (01:49)
[2019-06-04] MEDS: XOPENEX NEB INH SCH ×4 (03:28→21:02)
[2019-06-04] MEDS: ATROVENT NEB INH SCH ×4 (03:28→21:02)
[2019-06-04] MEDS: VANCOMYCIN 1,650 MG in NS 250 ML IV SCH ×2 (05:03→16:08)
[2019-06-04] MEDS: PRILOSEC PO SCH (06:36)
[2019-06-04] MEDS: COLACE PO SCH ×2 (09:10→20:39)
[2019-06-04] MEDS: CYMBALTA PO SCH ×2 (09:11→20:39)
[2019-06-04] MEDS: MYCOSTATIN SUSP PO SCH ×4 (09:11→20:39)
[2019-06-04] MEDS: DULCOLAX PO SCH (09:11)
[2019-06-04] MEDS: MUCINEX PO SCH ×2 (09:11→20:40)
[2019-06-04] MEDS: THERA M PLUS PO SCH (09:11)
[2019-06-04] MEDS: FOLIC ACID PO SCH (09:11)
[2019-06-04] MEDS: KEPPRA PO SCH ×2 (09:11→20:40)
[2019-06-04] MEDS ORDERED: ALBUTEROL 0.5% INH CONC FOR HYPERKALEMIA INH ONE (12:47)
[2019-06-04] MEDS ORDERED: ATROVENT NEB INH ONE (12:48)
[2019-06-04] MEDS ORDERED: LASIX IV ONE (12:50)
--- NOTE | 2019-06-04 13:08 | PROGRESS NOTE ---
DATE: 06/04/2019 SUBJECTIVE: Mr. Magallon seems a little more comfortable, breathing a little better. He did complain of some gas. He did require wrist restraints. OBJECTIVE: Vital Signs: Temp 97.7 degrees, pulse 105, respirations 16, blood pressure 153/87. HEENT: Pupils are equal and round. Lungs: Clear in all lung ho. Cardiovascular: Regular rhythm and rate without murmur or S3. LABORATORY DATA: Blood sugar 119, 168, 125, 224. ASSESSMENT AND PLAN: 1. Acute on chronic hypoxemic respiratory failure. Will continue supplementary oxygen. He has underlying non-small cell lung cancer, metastatic to the brain. He seems to be moving air okay. 2. Possible pneumonia, treating with antibiotics. 3. Non-small cell lung cancer, metastatic to the brain. 4. Leukocytosis. I think that is reactive. 5. Exacerbation of chronic obstructive pulmonary disease, and he has underlying lung cancer. 6. Possible constipation. 7. History of seizure disorder. He is on Keppra. 8. Gastroesophageal reflux disease. 9. 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 REVIEW OF ORDERS: He is on melatonin 5 mg at bedtime, Remeron 30 mg at bedtime, guaifenesin ER 600 mg every 12 hours, Tessalon Perles 100 mg p.o. t.i.d. p.r.n., Colace 200 mg p.o. b.i.d., Cymbalta 30 mg b.i.d., folic acid 1 mg daily, ipratropium bromide 0.5 mg inhalation every 6 hours, Xopenex 0.63 mg inhalation every 6 hours, Keppra 750 mg p.o. b.i.d., methylprednisone 60 mg IV every 6 hours, multivitamin 1 a day, nicotine patch 21 mg patch daily, Prilosec 40 mg a day, Seroquel 25 mg at bedtime, he is on vancomycin 1650 mg IV every 12 hours, he is getting vancomycin and cefepime. REVIEW OF LAB: Today, no new lab. Blood sugars have been 219, 153, 125, 225. cc: Rusty Bell MD
[2019-06-04] MEDS: MAXIPIME 2 GM/NS 2 GM/100 ML IVPB IV SCH (13:24)
[2019-06-04] MEDS: MELATONIN PO SCH (20:39)
[2019-06-04] MEDS: REMERON PO SCH (20:40)
[2019-06-04] MEDS: SEROQUEL PO SCH (20:40)
[2019-06-05] MEDS: MAXIPIME 2 GM/NS 2 GM/100 ML IVPB IV SCH ×2 (00:26→15:09)
[2019-06-05] MEDS: GEODON IM PRN (00:27)
[2019-06-05] MEDS: SOLU-MEDROL IV SCH ×3 (00:27→17:33)
[2019-06-05] MEDS: XOPENEX NEB INH SCH ×4 (03:34→21:11)
[2019-06-05] MEDS: ATROVENT NEB INH SCH ×4 (03:34→21:11)
[2019-06-05] MEDS: VANCOMYCIN 1,650 MG in NS 250 ML IV SCH ×2 (04:25→18:23)
[2019-06-05] MEDS: PRILOSEC PO SCH (06:50)
[2019-06-05] MEDS: KEPPRA PO SCH ×2 (08:39→20:08)
[2019-06-05] MEDS: THERA M PLUS PO SCH (08:40)
[2019-06-05] MEDS: CYMBALTA PO SCH ×2 (08:40→20:08)
[2019-06-05] MEDS: COLACE PO SCH ×2 (08:40→20:07)
[2019-06-05] MEDS: DULCOLAX PO SCH (08:41)
[2019-06-05] MEDS: FOLIC ACID PO SCH (08:41)
[2019-06-05] MEDS: MYCOSTATIN SUSP PO SCH ×4 (08:42→20:07)
[2019-06-05] MEDS: MUCINEX PO SCH ×2 (08:42→20:08)
--- NOTE | 2019-06-05 12:40 | PROGRESS NOTE ---
DATE: 06/05/2019 SUBJECTIVE: Mr. Magallon is feeling better. His was there visiting him. He lives at [facility]. He still has some wheezing, but he is not as tight as he was. He is eating and his bowels are moving. OBJECTIVE: Vital signs: Temperature 98.4 degrees, pulse 108, respirations 20, blood pressure 155/96. HEENT: Pupils are equal and round. Lungs: He has diffuse expiratory wheezing but it seems less intense than yesterday. He is able to talk and does not seem to be short of breath. Extremities: No pedal edema. Blood sugars 165, 108 and 150. ASSESSMENT: 1. Acute on chronic hypoxemic respiratory failure. Suspect he has some postobstructive pneumonia. He has underlying non-small cell lung cancer, metastatic to the brain, so it is stage IV. 2. Non-small cell lung cancer, metastatic to the brain. 3. Leukocytosis, which was I think reactive. 4. Exacerbation of chronic obstructive pulmonary disease, underlying lung cancer. 5. He claims his bowels are moving now. 6. History of seizure disorder. He is on Keppra. 7. History of gastroesophageal reflux disease. 8. 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 REVIEW OF ORDERS: He is on melatonin 5 mg at bedtime, Remeron 30 mg p.o. at bedtime, guaifenesin ER 600 mg p.o. q.12 hours, Tessalon Perles 100 mg p.o. t.i.d. p.r.n., Colace 200 mg p.o. b.i.d., Cymbalta 30 mg p.o. b.i.d., folic acid 1 mg daily, Xopenex breathing treatment 0.63 mg q.6 hours, Keppra 750 mg p.o. b.i.d., cefepime 2 g IV q.12 hours, methylprednisone 60 mg IV q.8 hours, nicotine patch 21 mg daily, omeprazole 40 mg a day, quetiapine 25 mg at bedtime, vancomycin 650 mg IV q.12. REVIEW OF LAB: His white count runs 57,240, hematocrit is 42, platelet count is 265,000. His blood sugars 165, 122, 108 and 150. I suspect with that kind of elevation of white blood cells that he may have some bone marrow involvement too of his lung cancer. We do have him on steroids, I will continue 60 mg IV q.8. cc: Rusty Bell MD
[2019-06-05 17:36] LABS: CREATININE 0.5 mg/dL (0.7-1.2)
--- NOTE | 2019-06-05 19:00 | Diag Imaging Result Doc PS360 ---
EXAM: CT THORAX/ABD/PELVIS W/CON HISTORY: Restaging TECHNIQUE: 1. CT chest with intravenous contrast 2. CT abdomen and pelvis with intravenous and oral contrast COMPARISON: 01/09/2019 and 01/28/2019 FINDINGS: Chest: Marked interval increase in the size of the right upper lobe mass which measures approximately 4.7 x 4.2 cm on the current exam. There are enlarged mediastinal and hilar nodes. Lobulated aorticopulmonary window grey mass has increased in size and now measures approximately 2.3 x 5.3 cm. No aortic aneurysm or dissection. No large central pulmonary emboli. There is basilar atelectasis. No consolidation. Abdomen and pelvis: No calcified gallstones. No focal hepatic lesion. No splenomegaly. Normal pancreas and adrenal glands. There are scattered renal cysts. No hydronephrosis. Prominent atherosclerosis. No aortic aneurysm. No bowel obstruction. No abscess. No ascites. No enlarged lymph nodes. There are multiple dependent stones in the urinary bladder. Normal prostate. IMPRESSION: Chest: Marked interval worsening Abdomen and pelvis: Multiple stones in the urinary bladder. This exam was performed using automated exposure control, adjustment of mA or kV according to patient size, and/or use of iterative reconstruction technique. Electronically signed by Grover Jordan 06/05/2019 6:58 PM
[2019-06-05] MEDS: SEROQUEL PO SCH (20:08)
[2019-06-05] MEDS: REMERON PO SCH (20:08)
[2019-06-05] MEDS: MELATONIN PO SCH (20:08)
[2019-06-06] MEDS: MAXIPIME 2 GM/NS 2 GM/100 ML IVPB IV SCH ×2 (00:28→13:54)
[2019-06-06] MEDS: SOLU-MEDROL IV SCH ×3 (00:28→16:46)
[2019-06-06] MEDS: ATROVENT NEB INH SCH ×4 (03:38→21:52)
[2019-06-06] MEDS: XOPENEX NEB INH SCH ×4 (03:38→21:51)
[2019-06-06] MEDS: VANCOMYCIN 1,650 MG in NS 250 ML IV SCH ×2 (05:20→17:38)
[2019-06-06] MEDS: PRILOSEC PO SCH (06:21)
[2019-06-06] MEDS: MUCINEX PO SCH ×2 (08:03→20:44)
[2019-06-06] MEDS: THERA M PLUS PO SCH (08:03)
[2019-06-06] MEDS: DULCOLAX PO SCH (08:03)
[2019-06-06] MEDS: FOLIC ACID PO SCH (08:03)
[2019-06-06] MEDS: CYMBALTA PO SCH ×2 (08:03→20:45)
[2019-06-06] MEDS: MYCOSTATIN SUSP PO SCH ×4 (08:03→20:44)
[2019-06-06] MEDS: COLACE PO SCH ×2 (08:04→20:44)
[2019-06-06] MEDS: KEPPRA PO SCH ×2 (08:04→20:45)
[2019-06-06] MEDS: STERILE WATER INJ. INJ PRN (11:08)
[2019-06-06] MEDS: GEODON IM PRN (11:08)
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
[2019-06-06] MEDS: REMERON PO SCH (20:44)
[2019-06-06] MEDS: SEROQUEL PO SCH (20:44)
[2019-06-06] MEDS: MELATONIN PO SCH (20:45)
[2019-06-07] MEDS: SOLU-MEDROL IV SCH ×3 (00:12→17:00)
[2019-06-07] MEDS: MAXIPIME 2 GM/NS 2 GM/100 ML IVPB IV SCH ×2 (00:13→13:02)
[2019-06-07] MEDS: XOPENEX NEB INH SCH ×3 (03:07→15:21)
[2019-06-07] MEDS: ATROVENT NEB INH SCH ×3 (03:07→15:21)
[2019-06-07] MEDS: VANCOMYCIN 1,650 MG in NS 250 ML IV SCH ×2 (06:01→17:00)
[2019-06-07] MEDS: PRILOSEC PO SCH (06:01)
[2019-06-07] MEDS: FOLIC ACID PO SCH (08:14)
[2019-06-07] MEDS: COLACE PO SCH (08:14)
[2019-06-07] MEDS: MYCOSTATIN SUSP PO SCH ×3 (08:14→17:00)
[2019-06-07] MEDS: MUCINEX PO SCH (08:14)
[2019-06-07] MEDS: THERA M PLUS PO SCH (08:14)
[2019-06-07] MEDS: KEPPRA PO SCH (08:14)
[2019-06-07] MEDS: CYMBALTA PO SCH (08:15)
[2019-06-07] MEDS: DULCOLAX PO SCH (08:15)
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
[2019-06-07 15:24] VITALS: BP 151/87
== END 2019-06-07 18:52 | DRG 193 ==
LOC: SUPCPDRO → ED 14:11 → SUATTDRO 21:52 → 3N 21:52
PROVIDERS: ATTEND Emergency Medicine

== ENCOUNTER 2019-07-15 23:25 | Inpatient (IN) ==
--- NOTE | 2019-07-15 23:42 | PROVIDER DOCUMENTATION ---
HPI-Respiratory General - General Stated Complaint: sob/fever Time Seen by Provider: 07/15/19 23:33 Source: patient Allergies/Adverse Reactions: Patient Allergies Allergy/AdvReac Type Severity Reaction Status Date / Time No Known Allergies Allergy Verified 07/16/19 01:20 Home Medications: Home Medication List Medication Instructions Recorded Confirmed Last Taken Type Levetiracetam [Keppra] 750 mg PO BID #60 tab 08/11/17 07/16/19 01/08/19 20:00 Rx Dronabinol [Marinol] 2.5 mg PO BID 12/21/17 07/16/19 01/08/19 20:00 History Mirtazapine 30 mg PO QHS 12/21/17 07/16/19 01/08/19 21:00 History Nicotine Patch [Nicoderm Patch] 21 mg TD DAILY patch.td24 08/30/18 07/16/19 01/08/19 09:00 Rx Folic Acid 1 mg PO DAILY 09/19/18 07/16/19 01/08/19 08:00 History Multivitamin [Multi-Day Vitamins] 1 tab PO DAILY 09/19/18 07/16/19 01/08/19 08:00 History Omeprazole [Prilosec] 40 mg PO ACB 09/19/18 07/16/19 01/08/19 06:00 History Budesonide/Formoterol Fumarate 2 puff INHALATION BID 01/09/19 07/16/19 01/08/19 20:00 History [Symbicort 80-4.5 Mcg Inhaler] Docusate Sodium [Colace] 200 mg PO BID 01/09/19 07/16/19 01/08/19 21:00 History Duloxetine HCl 30 mg PO BID 01/09/19 07/16/19 01/08/19 21:00 History Guaifenesin E.r. [Mucinex] 600 mg PO Q12HR 01/09/19 07/16/19 01/08/19 21:00 History Ipratropium/Albuterol Sulfate 3 ml INHALATION Q6H 01/09/19 07/16/19 01/09/19 00:00 History [Iprat-Albut 0.5-3(2.5) mg/3 ml] Melatonin 5 mg PO QHS 01/09/19 07/16/19 01/08/19 20:00 History Protein Hydrolysate,Milk [Liquid 30 ml PO BID 01/09/19 07/16/19 01/08/19 20:00 H istory Protein Fortifier] Quetiapine Fumarate 25 mg PO HS 01/09/19 07/16/19 01/08/19 20:00 History Calcium Carbonate/Vitamin D3 1 ea PO BID 06/02/19 07/16/19 Unknown History [Super Calcium 600-Vit D3 400] Mag Hydrox/Aluminum Hyd/Simeth 30 ml PO Q4H PRN PRN 06/02/19 07/16/19 Unknown History [Mylanta Maximum Strength Liq] Magnesium Hydroxide [Milk of 30 ml PO DAILY PRN PRN 06/02/19 07/16/19 Unknown History Magnesia] Menthol/Zinc Oxide Ointment 1 applicatn TOP BID PRN PRN 06/02/19 07/16/19 Unknown History [Calmoseptine Ointment] Ondansetron [Zofran] 4 mg PO Q6H PRN PRN 06/02/19 07/16/19 Unknown History Potassium Chloride E.r. [Micro-K] 10 meq PO BID 06/02/19 07/16/19 Unknown History Acetaminophen [Tylenol] 650 mg PO Q6H PRN PRN tab 06/07/19 07/16/19 Unknown Rx Benzonatate [Tessalon] 100 mg PO TID PRN PRN cap 06/07/19 07/16/19 Unknown Rx Buspirone HCl 5 mg PO TID 30 Days #90 tab 06/07/19 07/16/19 Unknown Rx Ipratropium Canalou Neb [Atrovent 0.5 mg INH RTQ6H neb 06/07/19 07/16/19 Unknown Rx Neb] Levalbuterol Neb [Xopenex Neb] 0.63 mg INH RTQ6H neb 06/07/19 07/16/19 Unknown Rx Hydrocodone/Acetaminophen [[place] 1 tab PO Q6H PRN PRN 07/16/19 07/16/19 Unknown History 5-325 Tablet] Lorazepam [Ativan] 0.5 mg PO QPM 07/16/19 07/16/19 Unknown History - History of Present Illness-Resp Nature of Presenting Problem: pt brought in by EMS. Has hx of lung cancer with mets to the brain. has intermittent AMS which is his baseline. pt is a poor historian. He resides at [facility]. Per EMS, pt had a temp. EMS was called by nursing staff for resp distress. Onset/Duration: reports: 1-3 hours ago Timing: reports: still present, getting worse Similar Symptoms Previously?: Yes Review of Systems - Adult - REVIEW OF SYSTEMS - ADULT ROS:: unobtainable per condition Constitutional: reports: see HPI Past History - Adult - PAST MEDICAL HISTORY-ADULT Review of Records: reports: Old Records Reviewed, Medications Reviewed 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, spinal cord/brain injury Psychiatric: reports: denies history Endocrine/Immune: reports: denies history Other Conditions: reports: denies history - PRIOR SURGERIES/PROCEDURES Surgical/Procedure History: reports: appendectomy - IMMUNIZATION STATUS Childhood Immunizations: See Nurse Assessment Flu Vaccine: See Nurse Assessment - FAMILY HISTORY Family History: reviewed, not pertinent - SOCIAL HISTORY Living Situation: care facility Physical Exam-General - PHYSICAL EXAM-ADULT Initial Vital Signs Reviewed: Yes - CONSTITUTIONAL General Appearance: lethargic, slow to respond, other (ill appearing) - EYES Eyes: pink conjunctivae - HEAD, EARS, NOSE, MOUTH & THROAT HENMT: other (dry membranes) - NECK Neck: supple - RESPIRATORY Respiratory: respiratory distress, other (on NC) - CARDIOVASCULAR Cardiovascular: tachycardia - GASTROINTESTINAL (ABDOMEN) Abdominal Exam: soft - SKIN Integumentary: normal color, warm/dry - PSYCHIATRIC Psych/Mental Status: other (unable to evaluate) Progress - PLAN OF CARE/RESULTS Progress/Plan/Lab Results: Orders Category Date Time Status Ad[place] - [facility] [place] AdmDCTranf 07/16/19 04:22 Active Activity - Strict Bedrest ORDERED Care 07/16/19 04:22 Active Cardiac Monitoring NOW Care 07/16/19 00:06 Completed [place] Cath Insertion ORDERED Care 07/16/19 00:31 Completed IV Insertion NOW Care 07/16/19 00:06 Completed NEWS Score >or=5:Order NEWS Bundle S.O. NOW Care 07/16/19 00:05 Completed Notify Provider of NEWS Score NOW Care 07/16/19 00:06 Completed Vital Signs Order Q 4-HR ASSESS Care 07/16/19 04:22 Active Z-Document. for Tele Applied ORDERED Care 07/16/19 04:22 Completed cxr [CHEST-1 VIEW] [RAD] Stat Exams 07/15/19 23:41 Completed ABG [RESP] Routine Lab 07/15/19 23:52 Completed BLOOD CULTURE [BLDCUL] Stat Lab 07/16/19 00:06 Results CBC WITH DIFF [HEME] Stat Lab 07/16/19 00:06 Completed CK PROFILE [SP CHEM] Stat Lab 07/16/19 00:06 Completed COMPREHENSIVE METABOLIC PANEL [CHEM] Stat Lab 07/16/19 00:06 Completed Flu Swab [INFLUENZA SCREEN A/B] Stat Lab 07/16/19 00:21 Completed LACTATE, PLASMA [CHEM] Lab 07/16/19 04:27 Completed LACTATE, PLASMA [CHEM] Lab 07/16/19 07:49 Completed LACTATE, PLASMA [CHEM] Q3H Lab 07/16/19 00:08 Completed MAGNESIUM [CHEM] Stat Lab 07/16/19 02:28 Completed PROTIME WITH INR [COAG] Stat Lab 07/16/19 00:06 Completed PTT [COAG] Stat Lab 07/16/19 00:06 Completed TROPONIN T HIGH SENSITIVITY Stat Lab 07/16/19 00:06 Completed URINALYSIS W/POSS RFLX CULT [URINALYSIS] Stat Lab 07/16/19 00:29 Completed URINE CULTURE [RM] Routine Lab 07/16/19 00:29 Received pro-bnp [PRO B-NATRIURETIC PEPTIDE] Stat Lab 07/16/19 02:28 Completed 0.9% Sodium Chloride Inj [Ns] 1,000 ml Med 07/15/19 23:44 Discontinued IV 999 mls/hr 0.9% Sodium Chloride Inj [Ns] 1,000 ml Med 07/16/19 02:05 Discontinued IV 999 mls/hr Budesonide [Pulmicort] Med 07/16/19 01:33 Discontinued 0.5 mg INH NOW ONE Diltiazem 100 mg/Ns [Cardizem 100 mg/Ns] Med 07/16/19 02:15 Active 100 mg in 100 ml IV As Directed mls/hr Diltiazem [Cardizem] Med 07/16/19 00:07 Discontinued 10 mg IV NOW ONE Diltiazem [Cardizem] Med 07/16/19 01:17 Discontinued 10 mg IV NOW ONE Ipratropium Canalou Neb [Atrovent Neb] Med 07/16/19 02:41 Discontinued 0.5 mg INH NOW ONE Levalbuterol Neb [Xopenex Neb] Med 07/16/19 02:41 Discontinued 0.63 mg INH NOW ONE Levalbuterol Neb [Xopenex Neb] Med 07/16/19 01:33 Discontinued 1.25 mg INH NOW ONE Piperacillin/Tazobactam [Zosyn] 3.375 gm Med 07/16/19 01:54 Discontinued 0.9% Sodium Chloride Inj [Ns] 50 ml IV NOW Sodium Chloride 0.9% Neb [Ns Neb] Med 07/16/19 01:45 Active 5 ml INH DIRECTED Sodium Chloride 0.9% Neb [Ns Neb] Med 07/16/19 02:45 Active 5 ml INH DIRECTED Vancomycin 1 gm/Ns Med 07/16/19 01:54 Discontinued 1 gm in 250 ml IV NOW Aerosol Treatments Routine Oth 07/16/19 01:33 Completed Aerosol Treatments Routine Oth 07/16/19 02:41 Completed Aerosol Treatments Stat Oth 07/16/19 01:33 Completed Aerosol Treatments Stat Oth 07/16/19 02:41 Completed BIPAP Stat Oth 07/15/19 23:41 Completed O2 Per Protocol Stat Oth 07/16/19 00:06 Completed Telemetry [OM.EQ] Routine Oth 07/16/19 04:22 Active Transfer/Admit Order [TRANSFER] Routine Transfer 07/16/19 02:25 Completed Result Diagrams: 07/17/19 05:41 07/17/19 05:41 - REASSESSMENT Reassessment #1 Time Reassessed: 01:53 Status: unchanged (pt was given 10 of cardizem 1 hour ago and HR had improved to 110s. at this time, HR increased back to 160s. Will give another push of 10 card[address] most likely place on drip. Will give zosyn for broad spec coverage. plan for admission.) - CONSULTS/PCP/HOSPITALIST Notification #1 *Consult/PCP/Hospitalist*: Dr. Darby Time Discussed: 02:08 Consult Disposition: Will see in ED Departure - Departure Date of Disposition Decision: 07/16/19 Time of Disposition Decision: 02:08 DIAGNOSIS: Tachycardia, Hypoxemia requiring supplemental oxygen, Sepsis, Respiratory distress Disposition: ADMITTED INPATIENT 09 Certified Medical Emergency: Emergent Condition: Critical - Critical Care Note This patient required my direct & personal management of CC.: Yes Total Time (mins): 35 Critical Care Statement: This patient required my direct personal management to treat or rule out processes, the absence of which, could potentiallly result in sudden, clinically significant life or limb threatening deterioration. Attestation - Physician/ DONNY Attestation Patient care was provided by Advanced Practice Provider:: No The physician spent face to face time with patient:: Yes Advanced Practice Provider documentation review:: Supervising physician onsite and consulted in the evaluation and care of this patient. The physician did have a face to face encounter with the patient.
[2019-07-15] MEDS ORDERED: NS 1,000 ML IV ONE (23:44)
[2019-07-16 00:01] LABS: ALLEN TEST YES; BE 0.1 mmoll (-3.0-3.0); BLOOD TYPE ARTERIAL; METHB 1.2 % (0.0-1.5); O2(CT) 19.8 mL/dL (15.0-23.0); O2HB 96.5 % (95.0-99.0); PCO2(98.6) 46 mmHg (35-45); PO2(98.6) 182 mmHg (60-100); SAMPLE BLOOD; SAO2 99.8 % (95.0-100.0); THB 14.3 g/dL (11.5-17.4); pH(98.6) 7.36 (7.35-7.45)
[2019-07-16 00:02] LABS: MODALITY NRB
[2019-07-16] MEDS ORDERED: CARDIZEM IV ONE ×2 (00:07→01:17)
[2019-07-16 00:35] LABS: BASO# 0.02 X1000 (0.0-0.2); BASO% 0.1 % (0.0-0.8); HEMATOCRIT 42.1 % (42.0-52.0); HEMOGLOBIN 13.1 g/dL (14.0-18.0); IMM GRAN# 0.28 X1000 (0.0-0.04); IMM GRAN% 1.2 % (0.0-0.5); LYMPH% 0.8 % (20.5-51.1); MCH 28.4 PG (27-31); MCHC 31.1 g/dL (33-37); MCV 91.3 FL (81-99); MONO# 0.18 X1000 (0.11-0.59); MONO% 0.8 % (1.7-9.3); MPV 8.3 FL (7.4-10.4); NEUT# 23.18 X1000 (1.4-6.5); NEUT% 97.1 % (42.2-75.2); PLT 498 X1000 (130-400); RBC 4.61 XMIL (4.7-6.1); WBC 23.86 X1000 (4.8-10.8)
[2019-07-16 00:39] LABS: URINE SOURCE CATH
[2019-07-16 00:44] LABS: UR EPITHELIAL CELLS <10 /HPF (<10); URINE BACTERIA NEGATIVE /HPF; URINE RBC <10 /HPF (<10); URINE WBC <10 /HPF (<10)
[2019-07-16 00:48] LABS: BILIRUBIN URINE SMALL (NEGATIVE); BLOOD URINE NEGATIVE (NEGATIVE); COLOR YELLOW; GLUCOSE URINE 500 mg/dL (NEGATIVE); KETONE URINE NEGATIVE (NEGATIVE); LEUKOCYTES URINE TRACE (NEGATIVE); NITRITE URINE NEGATIVE (NEGATIVE); PH URINE 6.5; PROTEIN URINE TRACE mg/dL (NEGATIVE); SP GRAVITY URINE 1.019; TURBIDITY URINE CLEAR (CLEAR); UROBILINOGEN URINE 4 mg/dL (NORMAL)
[2019-07-16 00:50] LABS: INR 1.12; PROTIME 14.5 Seconds (11.0-16.0)
[2019-07-16 01:14] LABS: AGAP 16; ALB/GLOB RATIO 1.3; ALBUMIN 3.6 g/dL (3.5-5.0); ALKALINE PHOSPHATASE 83 U/L (32-122); BUN 10 mg/dL (8-22); CALCIUM 8.5 mg/dL (8.8-10.2); CHLORIDE 101 mmol/L (98-107); CK PROFILE 26 U/L (24-204); COSMO 286; CREATININE 0.5 mg/dL (0.7-1.2); ESTIMATED GFR > 60; GLUCOSE 242 mg/dL (70-104); GOT 20 U/L (10-34); GPT 11 U/L (10-44); POTASSIUM 4.3 mmol/L (3.5-5.1); SODIUM 140 mmol/L (136-145); TCO2 23 mmol/L (25-35); TOTAL BILIRUBIN 0.21 mg/dL (0.20-1.00); TOTAL PROTEIN 6.4 g/dL (6.3-8.3)
[2019-07-16 01:20] LABS: PTT 35.5 Seconds (22.3-41.8)
[2019-07-16] MEDS ORDERED: PULMICORT INH ONE (01:33)
[2019-07-16] MEDS ORDERED: XOPENEX NEB INH ONE ×2 (01:33→02:41)
[2019-07-16] MEDS ORDERED: NS NEB INH SCH ×3 (01:45→06:00)
[2019-07-16] MEDS ORDERED: VANCOMYCIN 1 GM/NS 1 GM/250 ML IVPB IV ONE (01:54)
[2019-07-16] MEDS ORDERED: ZOSYN 3.375 GM in NS 50 ML IV ONE (01:54)
[2019-07-16] MEDS ORDERED: NS 1,000 ML IV ONE (02:05)
[2019-07-16] MEDS ORDERED: ATROVENT NEB INH ONE (02:41)
[2019-07-16] MEDS: CARDIZEM 100 MG/NS 100 MG/100 ML IVPB IV SCH ×2 (03:01→08:39)
[2019-07-16 04:53] LABS: BASO# 0.05 X1000 (0.0-0.2); BASO% 0.2 % (0.0-0.8); EOS# 0.09 X1000 (0.0-0.7); EOS% 0.3 % (0.0-10.0); HEMATOCRIT 44.2 % (42.0-52.0); HEMOGLOBIN 13.3 g/dL (14.0-18.0); IMM GRAN% 1.4 % (0.0-0.5); LYMPH# 0.77 X1000 (1.2-3.4); LYMPH% 2.7 % (20.5-51.1); MCH 28.1 PG (27-31); MCHC 30.1 g/dL (33-37); MCV 93.4 FL (81-99); MONO# 0.42 X1000 (0.11-0.59); MONO% 1.5 % (1.7-9.3); MPV 8.1 FL (7.4-10.4); NEUT# 27.14 X1000 (1.4-6.5); NEUT% 93.9 % (42.2-75.2); PLT 459 X1000 (130-400); RBC 4.73 XMIL (4.7-6.1); RDW 18.1 % (11.5-14.5); WBC 28.87 X1000 (4.8-10.8)
[2019-07-16 05:04] LABS: AGAP 16; BUN 9 mg/dL (8-22); CALCIUM 8.8 mg/dL (8.8-10.2); CHLORIDE 103 mmol/L (98-107); CK PROFILE 24 U/L (24-204); COSMO 288; CREATININE 0.6 mg/dL (0.7-1.2); ESTIMATED GFR > 60; GLUCOSE 183 mg/dL (70-104); POTASSIUM 4.5 mmol/L (3.5-5.1); SODIUM 143 mmol/L (136-145); TCO2 24 mmol/L (25-35)
--- NOTE | 2019-07-16 05:44 | Diag Imaging Result Doc PS360 ---
EXAM: CHEST-1 VIEW HISTORY: resp distress TECHNIQUE: Single view COMPARISON: 06/01/2019 FINDINGS: Poor inspiratory effort. The right hemidiaphragm is elevated. Interval increase in the size of the right perihilar mass. Perihilar prominence bilaterally likely due to adenopathy persists. No pleural effusions identified. There is atelectasis in the lower right lung. IMPRESSION: Interval worsening Electronically signed by Grover Jordan 07/16/2019 5:41 AM
[2019-07-16] MEDS ORDERED: VANCOMYCIN IV PER PHARMACY MISC SCH (06:00)
[2019-07-16 06:19] LABS: ALLEN TEST YES; BE 0.7 mmoll (-3.0-3.0); BLOOD TYPE ARTERIAL; HCO3-(ACT) 25.4 mmoll (20.0-26.0); METHB 1.3 % (0.0-1.5); O2(CT) 18.5 mL/dL (15.0-23.0); O2HB 96.1 % (95.0-99.0); PCO2(98.6) 40 mmHg (35-45); PO2(98.6) 102 mmHg (60-100); SAMPLE BLOOD; SAO2 99.1 % (95.0-100.0); THB 13.6 g/dL (11.5-17.4); TVOL 4 mL; pH(98.6) 7.41 (7.35-7.45)
[2019-07-16 06:21] LABS: MODALITY BI PAP
[2019-07-16] MEDS ORDERED: VANCOMYCIN 1,000 MG in NS 250 ML IV ONE (07:00)
[2019-07-16] MEDS ORDERED: NS 1,000 ML IV SCH (07:15)
[2019-07-16 07:29] LABS: BANDS 4 % (0-1); LYMPHS 4 % (21-51); MONO 10 % (1-9); SEGS 78 % (42-75)
--- NOTE | 2019-07-16 07:36 | EKG Report ---
Test Performed on : 07/16/2019 07:09:15 AM Test Reason : Tachycardia, Elevated Troponin Blood Pressure : / mmHG Vent. Rate : 141 BPM Atrial Rate : 141 BPM P-R Int : 132 ms QRS Dur : 062 ms QT Int : 266 ms P-R-T Axes : 050 -23 040 degrees QTc Int : 407 ms Critical Test Result: High HR Sinus tachycardia. Possible Left atrial enlargement Low voltage QRS Inferior infarct (cited on or before 01-JUN-2019) Abnormal ECG When compared with ECG of 15-JUL-2019 23:35, (Unconfirmed) Questionable change in initial forces of Inferior leads Confirmed by Jacky Davies MD ([id number]) on 07/16/2019 9:07:22 PM
[2019-07-16] MEDS: ZOSYN 3.375 GM in NS 50 ML IV SCH ×3 (08:05→20:24)
--- NOTE | 2019-07-16 08:11 | EKG Report ---
Test Performed on : 07/15/2019 11:35:30 PM Test Reason : SOB Blood Pressure : / mmHG Vent. Rate : 166 BPM Atrial Rate : 166 BPM P-R Int : 118 ms QRS Dur : 064 ms QT Int : 306 ms P-R-T Axes : 054 -40 056 degrees QTc Int : 508 ms Sinus tachycardia. Left axis deviation Inferior infarct , age undetermined Abnormal ECG When compared with ECG of 01-JUN-2019 23:49, Inferior infarct is now present Unconfirmed Result
[2019-07-16] MEDS ORDERED: OFIRMEV 1000 MG/ISOTONIC SOLN 1,000 MG/100 ML BOTTLE IV PRN (08:22)
[2019-07-16] MEDS ORDERED: MAALOX PLUS LIQUID PO PRN (08:36)
[2019-07-16] MEDS ORDERED: CALMOSEPTINE OINTMENT TOP PRN (08:36)
[2019-07-16] MEDS ORDERED: TESSALON PO PRN (08:36)
[2019-07-16] MEDS ORDERED: ZOFRAN IV PRN (08:42)
[2019-07-16] MEDS ORDERED: NON-FORMULARY MED (Protein Hydrolysate,Milk [Liquid Protein Fortifier] 30 ML) PO SCH (09:00)
--- NOTE | 2019-07-16 09:08 | Diag Imaging Result Doc PS360 ---
EXAM: KUB ABDOMEN HISTORY: Generalized Abd. Pain/Destintion,Poss Constipation TECHNIQUE: Single view COMPARISON: 06/01/2019 FINDINGS: No bowel obstruction. No organomegaly. No abnormal abdominal calcifications. IMPRESSION: No definite constipation Electronically signed by Grover Jordan 07/16/2019 9:05 AM
[2019-07-16] MEDS: ATROVENT NEB INH SCH ×3 (09:21→22:48)
[2019-07-16] MEDS: XOPENEX NEB INH SCH ×3 (09:21→22:47)
[2019-07-16] MEDS ORDERED: SOLU-MEDROL IV SCH (10:00)
[2019-07-16] MEDS ORDERED: LEVOPHED 8 MG in D5 1/2 NS 250 ML IV SCH (10:15)
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
[2019-07-16] MEDS: MUCINEX PO SCH ×3 (12:32→23:12)
[2019-07-16] MEDS: NS 1,000 ML IV SCH ×2 (12:32→17:14)
[2019-07-16] MEDS: KEPPRA PO SCH ×2 (12:32→20:23)
[2019-07-16] MEDS: COLACE PO SCH ×3 (12:33→23:12)
[2019-07-16] MEDS: SOLU-MEDROL IV SCH ×4 (15:54→23:13)
--- NOTE | 2019-07-16 16:21 | Diag Imaging Result Doc PS360 ---
EXAM: CT THORAX W/WO CONTRAST INDICATION: R/o pneumonitis and restaging TECHNIQUE: This exam was performed using automated exposure control, adjustment of mA or kV according to patient size, and/or use of iterative reconstruction technique. COMPARISON: 06/05/2019 FINDINGS: There is a known right upper lobe lung mass medially abutting the mediastinum. It measures larger than the previous study at 5.2 x 4.8 cm axially (4.6 x 4.3 cm previously, remeasured). There is also extensive mediastinal and hilar lymphadenopathy. It also appears worse than the previous study. For reference, there is a conglomerate grey mass in the upper mediastinum on the left measuring 6.0 x 2.6 cm axially (5.5 x 2.4 cm previously, remeasured). There is bilateral dependent atelectasis and there is airspace consolidation in the right lower lobe and right middle lobe suggesting pneumonia. There is bronchial mucosal thickening at both lower lobes suggesting bronchitis. There is trace bilateral pleural fluid. Limited views of the upper abdomen are essentially unremarkable. IMPRESSION: 1.Interval increase in size of the primary mass in the right upper lobe as well as the mediastinal and hilar lymphadenopathy as detailed above. 2.Bibasilar bronchial mucosal thickening indicating bronchitis with airspace infiltrate at the right lower lobe and right middle lobe suggesting pneumonia. Electronically signed by Samson Cabello 07/16/2019 4:19 PM
[2019-07-16] MEDS: MELATONIN PO SCH ×2 (20:23→23:12)
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
[2019-07-16] MEDS: HUMULIN R SUBQ SCH (23:13)
[2019-07-16] MEDS: KEPPRA 750 MG in NS 100 ML IV SCH ×2 (23:23→23:33)
[2019-07-17] MEDS: VANCOMYCIN 1,600 MG in NS 250 ML IV SCH ×2 (01:41→21:03)
[2019-07-17] MEDS: NS 1,000 ML IV SCH ×3 (01:45→18:07)
[2019-07-17] MEDS: ZOSYN 3.375 GM in NS 50 ML IV SCH ×4 (03:17→21:03)
[2019-07-17] MEDS: SOLU-MEDROL IV SCH ×4 (03:17→21:46)
[2019-07-17] MEDS: XOPENEX NEB INH SCH ×4 (04:00→21:43)
[2019-07-17] MEDS: ATROVENT NEB INH SCH ×4 (04:00→21:42)
[2019-07-17 05:19] LABS: ALLEN TEST YES; BE 1.9 mmoll (-3.0-3.0); BLOOD TYPE ARTERIAL; HCO3-(ACT) 26.4 mmoll (20.0-26.0); METHB 1.1 % (0.0-1.5); O2(CT) 15.1 mL/dL (15.0-23.0); O2HB 96.4 % (95.0-99.0); PO2(98.6) 117 mmHg (60-100); SAMPLE BLOOD; SAO2 99.1 % (95.0-100.0); pH(98.6) 7.35 (7.35-7.45)
[2019-07-17 05:23] LABS: MODALITY BI PAP; PCO2(98.6) 51 mmHg (35-45)
[2019-07-17] MEDS: HUMULIN R SUBQ SCH ×4 (06:00→21:13)
[2019-07-17] MEDS: PRILOSEC PO SCH (06:01)
[2019-07-17 06:04] LABS: BASO# 0.01 X1000 (0.0-0.2); BASO% 0.1 % (0.0-0.8); HEMATOCRIT 35.5 % (42.0-52.0); HEMOGLOBIN 10.9 g/dL (14.0-18.0); IMM GRAN# 0.07 X1000 (0.0-0.04); IMM GRAN% 0.4 % (0.0-0.5); LYMPH# 0.33 X1000 (1.2-3.4); LYMPH% 1.7 % (20.5-51.1); MCH 28.2 PG (27-31); MCHC 30.7 g/dL (33-37); MCV 91.7 FL (81-99); MONO# 0.02 X1000 (0.11-0.59); MONO% 0.1 % (1.7-9.3); MPV 8.5 FL (7.4-10.4); NEUT# 18.95 X1000 (1.4-6.5); NEUT% 97.7 % (42.2-75.2); PLT 379 X1000 (130-400); RBC 3.87 XMIL (4.7-6.1); RDW 17.9 % (11.5-14.5); WBC 19.38 X1000 (4.8-10.8)
[2019-07-17 06:29] LABS: AGAP 9; BUN 12 mg/dL (8-22); CALCIUM 8.1 mg/dL (8.8-10.2); CHLORIDE 105 mmol/L (98-107); CK PROFILE 57 U/L (24-204); COSMO 286; CREATININE 0.5 mg/dL (0.7-1.2); ESTIMATED GFR > 60; GLUCOSE 146 mg/dL (70-104); MAGNESIUM 1.8 mg/dL (1.5-2.7); POTASSIUM 3.8 mmol/L (3.5-5.1); SODIUM 142 mmol/L (136-145); TCO2 28 mmol/L (25-35)
--- NOTE | 2019-07-17 07:16 | Diag Imaging Result Doc PS360 ---
EXAM: CHEST-PORTABLE HISTORY: dyspnea TECHNIQUE: Single view COMPARISON: 07/15/2019 FINDINGS: Improved inspiratory effort. Persistent basilar atelectasis and/or infiltrates. These are slightly more prominent on the current exam. There may be small right effusion. No cardiomegaly. Perihilar prominence/mass/adenopathy unchanged. IMPRESSION: Interval worsening Electronically signed by Grover Jordan 07/17/2019 7:13 AM
[2019-07-17] MEDS: COLACE PO SCH ×2 (08:19→21:03)
[2019-07-17] MEDS: MUCINEX PO SCH ×2 (08:20→21:03)
--- NOTE | 2019-07-17 10:30 | PROGRESS NOTE ---
DATE: 07/17/2019 SUBJECTIVE: The patient seems to be more awake and feeling better today. He has some rash on his body, probably because of the treatment with vancomycin. He is wheezing bilaterally still due to his advanced COPD. I will continue keeping this patient in the ICU. I will continue with the same management. White blood cell count is going down even though he has been on steroids. Continue with antibiotics, breathing treatment as well. OBJECTIVE: Vital Signs: Temperature 97 degrees, pulse 115, respiratory rate 28, blood pressure 124/68, oxygen saturation 92 on a Venturi mask. HEENT: Head normocephalic, no trauma. PERRLA. Neck: Supple. No JVD. Central trachea. Chest: Decreased breath sounds globally with prolonged expiratory phase, wheezing and bilateral crepitus at the bases. Abdomen: Soft, nontender, nondistended. No hepatosplenomegaly. Extremities: Some upper extremity edema. No clubbing, no cyanosis. Neurological: The patient is awake, he is alert, he is following commands. He is oriented today, his answers are slow but apparently he has been confused on and off even before coming to the hospital due to his brain metastasis. LABORATORY DATA: WBC 19.3, hemoglobin 10.9, hematocrit 35.5, platelets 379,000. Sodium 142, potassium 3.9, chloride 105, bicarbonate 28, BUN 12, creatinine 0.5, glucose 146, calcium 8.1, magnesium 1.8. ASSESSMENT AND PLAN: 1. Acute hypoxemic and hypercarbic respiratory failure. Continue with oxygen supplementation, breathing treatment, pulmonary toilet, antibiotics, he is on home oxygen. 2. Mental status changes. This could be multifactorial but seems to be better. 3. Metastatic non-small cell lung cancer to the brain, followed by Dr. Askew. 4. Possible pneumonia with likely sepsis. He has not been placed on vasopressors yet, leukocyte count is getting much better. He is still tachypneic and tachycardic. We will continue with the same management. 5. I will ask a swallow evaluation to see the patient. Apparently, he has been choking with food. 6. This patient is DNR level 1. CRITICAL CARE TIME: 32 minutes. cc: Aric Mcadams MD
[2019-07-17] MEDS: KEPPRA 750 MG in NS 100 ML IV SCH (12:59)
--- NOTE | 2019-07-17 18:52 | PROVIDER PROGRESS NOTE ---
Progress Note Dr. Johnson Progress Note/Pulmonary and or critical care Subjective: The patient is lying in bed on NC 4L and tolerates well. He appears more awake and alert at this time. He states he is feeling better. He still has SOB with activities. No family at the bedside. Input was appreciated from Dr. Wheeler and other teams on the case. Objective: Vital Signs: T 98.4 (No fever in last 24 hours), MT 112, RR 22, BP 113/84 and SaO2 91% on NC 4 L. I/O: +2225 ml. Physical Examination: General: Lying in bed on NC 4L. No acute distress noted. HEENT: Normocephalic. Trachea midline. Mucosa pink and slightly dry. Chest: Mild tachypnea at times. No increased work of breathing noted. Symmetrical excursion. Improving expiratory wheezing bilaterally with prolonged expiratory phase and decreased air entry bilaterally CVS: S1 and S2 appreciated. Abdomen: Slightly firm. Slightly distended. Nontender. Bowel sounds noted. Extremities: No edema. No cyanosis. No clubbing. Discoloration noted. Neuro: Awake and alert. Follow simple commands. Answer simple questions. Labs and Radiology: Laboratory Results 07/16/19 07/17/19 07/17/19 20:12 05:09 05:41 WBC RBC Hgb Hct MCV MCH MCHC RDW Std Deviation Plt Count MPV Immature Gran % (Auto) Neut % (Auto) Lymph % (Auto) [place] % (Auto) Eos % (Auto) Baso % (Auto) Immature Gran # (Auto) Neut # (Auto) Lymph # (Auto) [place] # (Auto) Eos # (Auto) Baso # (Auto) Specimen Type ARTERIAL Sample Site R RADIAL pH 7.35 pCO2 51 H* pO2 117 H HCO3 26.4 H Base Excess 1.9 Oxyhemoglobin 96.4 ABG O2 Sat (Calculated) 15.1 ABG O2 Saturation 99.1 ABG Carboxyhemoglobin 1.60 ABG Methemoglobin 1.1 Rsuty Test YES A-a O2 Difference 104.0 Total Hemoglobin 11.0 L Lactate 1.70 Blood Gas Modality BI PAP FiO2 % 40.0 Inspiratory BiPAP 12.0 Expiratory BiPAP 6.0 Sodium 142 Potassium 3.8 D Chloride 105 Carbon Dioxide 28 Anion Gap 9 BUN 12 Creatinine 0.5 L Estimated GFR/1.73 m2 > 60 BUN/Creatinine Ratio 24 Glucose 146 H POC Glucose 190 H Calculated Osmolality 286 Calcium 8.1 L Magnesium 1.8 Creatine Kinase 57 D 07/17/19 07/17/19 07/17/19 05:41 05:53 10:39 WBC 19.38 H RBC 3.87 L Hgb 10.9 L D Hct 35.5 L MCV 91.7 MCH 28.2 MCHC 30.7 L RDW Std Deviation 17.9 H Plt Count 379 MPV 8.5 Immature Gran % (Auto) 0.4 Neut % (Auto) 97.7 H Lymph % (Auto) 1.7 L [place] % (Auto) 0.1 L Eos % (Auto) 0.0 Baso % (Auto) 0.1 Immature Gran # (Auto) 0.07 H Neut # (Auto) 18.95 H Lymph # (Auto) 0.33 L [place] # (Auto) 0.02 L Eos # (Auto) 0.00 Baso # (Auto) 0.01 Specimen Type Sample Site pH pCO2 pO2 HCO3 Base Excess Oxyhemoglobin ABG O2 Sat (Calculated) ABG O2 Saturation ABG Carboxyhemoglobin ABG Methemoglobin Rusty Test A-a O2 Difference Total Hemoglobin Lactate Blood Gas Modality FiO2 % Inspiratory BiPAP Expiratory BiPAP Sodium Potassium Chloride Carbon Dioxide Anion Gap BUN Creatinine Estimated GFR/1.73 m2 BUN/Creatinine Ratio Glucose POC Glucose 124 H 146 H Calculated Osmolality Calcium Magnesium Creatine Kinase Assessment: Acute on chronic hypoxemic respiratory failure. COPD exacerbation. Stage IV non-small cell lung cancer, metastatic to the brain. RLL bronchitis and RML pneumonia. Possible sepsis and shock. Improving. DNR 1. Plan: Continue supplemental oxygen. Continue BiPAP at bedtime and as needed. We titrated supplemental oxygen and BiPAP settings to patients needs per clinical protocol. We will monitor patients response closely. We will continue monitoring patients blood pressure closely and if indicated we will start Perfecto. Continue antibiotics including Vancomycin and Zosyn, on Day 2. Continue Solu-Medrol. No steroid weaning at this time. Continue bronchodilators. Total evaluation time in minutes: 33.
[2019-07-17] MEDS: MYCOSTATIN SUSP PO SCH (21:03)
[2019-07-17] MEDS: MELATONIN PO SCH (21:03)
[2019-07-18] MEDS: KEPPRA 750 MG in NS 100 ML IV SCH ×2 (00:55→12:49)
[2019-07-18] MEDS: NS 1,000 ML IV SCH ×2 (02:23→09:16)
[2019-07-18] MEDS: ZOSYN 3.375 GM in NS 50 ML IV SCH ×4 (02:34→20:04)
[2019-07-18] MEDS: XOPENEX NEB INH SCH ×4 (03:45→22:46)
[2019-07-18] MEDS: ATROVENT NEB INH SCH ×4 (03:45→22:46)
[2019-07-18] MEDS: SOLU-MEDROL IV SCH ×4 (04:28→22:16)
[2019-07-18 04:40] LABS: ALLEN TEST YES; BE 5.1 mmoll (-3.0-3.0); BLOOD TYPE ARTERIAL; HCO3-(ACT) 28.9 mmoll (20.0-26.0); METHB 1.1 % (0.0-1.5); O2(CT) 14.4 mL/dL (15.0-23.0); O2HB 96.9 % (95.0-99.0); PCO2(98.6) 44 mmHg (35-45); PO2(98.6) 138 mmHg (60-100); SAMPLE BLOOD; SAO2 99.2 % (95.0-100.0); THB 10.4 g/dL (11.5-17.4); pH(98.6) 7.44 (7.35-7.45)
[2019-07-18 04:41] LABS: MODALITY VENTIMASK
[2019-07-18] MEDS: HUMULIN R SUBQ SCH ×4 (06:11→20:05)
[2019-07-18 06:18] LABS: BASO# 0.01 X1000 (0.0-0.2); BASO% 0.1 % (0.0-0.8); HEMATOCRIT 31.1 % (42.0-52.0); HEMOGLOBIN 9.6 g/dL (14.0-18.0); IMM GRAN# 0.04 X1000 (0.0-0.04); IMM GRAN% 0.3 % (0.0-0.5); LYMPH# 0.37 X1000 (1.2-3.4); LYMPH% 2.8 % (20.5-51.1); MCH 28.3 PG (27-31); MCHC 30.9 g/dL (33-37); MCV 91.7 FL (81-99); MONO# 0.01 X1000 (0.11-0.59); MONO% 0.1 % (1.7-9.3); MPV 8.7 FL (7.4-10.4); NEUT# 12.99 X1000 (1.4-6.5); NEUT% 96.7 % (42.2-75.2); PLT 361 X1000 (130-400); RBC 3.39 XMIL (4.7-6.1); RDW 17.2 % (11.5-14.5); WBC 13.42 X1000 (4.8-10.8)
[2019-07-18] MEDS: PRILOSEC PO SCH (06:25)
[2019-07-18 06:37] LABS: LYMPHS 2 % (21-51); SEGS 98 % (42-75)
[2019-07-18 07:00] LABS: AGAP 6; ALBUMIN 2.6 g/dL (3.5-5.0); ALKALINE PHOSPHATASE 75 U/L (32-122); BUN 10 mg/dL (8-22); CALCIUM 7.9 mg/dL (8.8-10.2); CHLORIDE 103 mmol/L (98-107); COSMO 275; CREATININE 0.5 mg/dL (0.7-1.2); ESTIMATED GFR > 60; GLUCOSE 138 mg/dL (70-104); GOT 19 U/L (10-34); GPT 13 U/L (10-44); POTASSIUM 3.5 mmol/L (3.5-5.1); SODIUM 137 mmol/L (136-145); TCO2 28 mmol/L (25-35); TOTAL PROTEIN 5.1 g/dL (6.3-8.3)
[2019-07-18] MEDS: MYCOSTATIN SUSP PO SCH ×4 (09:13→20:04)
[2019-07-18] MEDS: MUCINEX PO SCH ×2 (09:13→20:04)
[2019-07-18] MEDS: DULCOLAX PR SCH ×2 (09:13→20:04)
[2019-07-18] MEDS: COLACE PO SCH ×2 (09:13→20:04)
[2019-07-18] MEDS: TYLENOL PO PRN ×2 (09:14→16:22)
[2019-07-18] MEDS ORDERED: LASIX IV ONE (09:53)
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
[2019-07-18] MEDS: VANCOMYCIN 1,600 MG in NS 250 ML IV SCH (14:21)
[2019-07-18] MEDS: NORCO-5 PO PRN (14:21)
--- NOTE | 2019-07-18 17:37 | PROVIDER PROGRESS NOTE ---
Progress Note Dr. Johnson Progress Note/Pulmonary and or critical care Subjective: The patient is lying in bed on NC 4L and tolerates well. He states he is feeling better and he asks when he will be discharged. No family at the bedside. Input was appreciated from Dr. Wheeler and other teams on the case. Objective: Vital Signs: T 97.9 (No fever in last 24 hours), [place] 98, RR 21, BP 157/91 and SaO2 95% on VM 50%. I/O: +2800 ml. Physical Examination: General: Lying in bed on NC 4L. No acute distress noted. HEENT: Normocephalic. Trachea midline. Mucosa pink and slightly dry. Chest: Even and unlabored. No increased work of breathing noted. Symmetrical excursion. Improved air entry bilaterally with no wheezing noted. CVS: S1 and S2 appreciated. Abdomen: Slightly firm. Slightly distended. Nontender. Bowel sounds noted. Extremities: No edema. No cyanosis. No clubbing. Discoloration noted. Neuro: Awake and alert. Follow simple commands. Answer simple questions. Labs and Radiology: Laboratory Results 07/17/19 07/17/19 07/18/19 15:56 20:59 04:10 WBC RBC Hgb Hct MCV MCH MCHC RDW Std Deviation Plt Count MPV Immature Gran % (Auto) Neut % (Auto) Lymph % (Auto) [place] % (Auto) Eos % (Auto) Baso % (Auto) Immature Gran # (Auto) Neut # (Auto) Lymph # (Auto) [place] # (Auto) Eos # (Auto) Baso # (Auto) Segmented Neutrophils Lymphocytes Specimen Type ARTERIAL Sample Site R RADIAL pH 7.44 pCO2 44 pO2 138 H HCO3 28.9 H Base Excess 5.1 H Oxyhemoglobin 96.9 ABG O2 Sat (Calculated) 14.4 L ABG O2 Saturation 99.2 ABG Carboxyhemoglobin 1.20 ABG Methemoglobin 1.1 Rusty Test YES A-a O2 Difference 164.0 Total Hemoglobin 10.4 L Lactate 0.80 Liter Flow 15.0 Blood Gas Modality VENTIMASK FiO2 % 50.0 Sodium Potassium Chloride Carbon Dioxide Anion Gap BUN Creatinine Estimated GFR/1.73 m2 BUN/Creatinine Ratio Glucose POC Glucose 158 H 144 H Calculated Osmolality Calcium Total Bilirubin AST ALT Alkaline Phosphatase Total Protein Albumin Globulin Albumin/Globulin Ratio 07/18/19 07/18/1907/17/20 04:45 04:45 06:11 WBC 13.42 H RBC 3.39 L Hgb 9.6 L Hct 31.1 L MCV 91.7 MCH 28.3 MCHC 30.9 L RDW Std Deviation 17.2 H Plt Count 361 MPV 8.7 Immature Gran % (Auto) 0.3 Neut % (Auto) 96.7 H Lymph % (Auto) 2.8 L [place] % (Auto) 0.1 L Eos % (Auto) 0.0 Baso % (Auto) 0.1 Immature Gran # (Auto) 0.04 Neut # (Auto) 12.99 H Lymph # (Auto) 0.37 L [place] # (Auto) 0.01 L Eos # (Auto) 0.00 Baso # (Auto) 0.01 Segmented Neutrophils 98 H Lymphocytes 2 L Specimen Type Sample Site pH pCO2 pO2 HCO3 Base Excess Oxyhemoglobin ABG O2 Sat (Calculated) ABG O2 Saturation ABG Carboxyhemoglobin ABG Methemoglobin Rusty Test A-a O2 Difference Total Hemoglobin Lactate Liter Flow Blood Gas Modality FiO2 % Sodium 137 Potassium 3.5 Chloride 103 Carbon Dioxide 28 Anion Gap 6 BUN 10 Creatinine 0.5 L Estimated GFR/1.73 m2 > 60 BUN/Creatinine Ratio 20 Glucose 138 H POC Glucose 120 H Calculated Osmolality 275 Calcium 7.9 L Total Bilirubin 0.20 AST 19 ALT 13 Alkaline Phosphatase 75 Total Protein 5.1 L Albumin 2.6 L Globulin 2.5 Albumin/Globulin Ratio 1.0 07/18/19 07/18/19 07/18/19 10:44 15:28 15:49 WBC RBC Hgb Hct MCV MCH MCHC RDW Std Deviation Plt Count MPV Immature Gran % (Auto) Neut % (Auto) Lymph % (Auto) [place] % (Auto) Eos % (Auto) Baso % (Auto) Immature Gran # (Auto) Neut # (Auto) Lymph # (Auto) [place] # (Auto) Eos # (Auto) Baso # (Auto) Segmented Neutrophils Lymphocytes Specimen Type Sample Site pH pCO2 pO2 HCO3 Base Excess Oxyhemoglobin ABG O2 Sat (Calculated) ABG O2 Saturation ABG Carboxyhemoglobin ABG Methemoglobin Rusty Test A-a O2 Difference Total Hemoglobin Lactate Liter Flow Blood Gas Modality FiO2 % Sodium Potassium Chloride Carbon Dioxide Anion Gap BUN Creatinine Estimated GFR/1.73 m2 BUN/Creatinine Ratio Glucose POC Glucose 149 H 180 H 181 H Calculated Osmolality Calcium Total Bilirubin AST ALT Alkaline Phosphatase Total Protein Albumin Globulin Albumin/Globulin Ratio Assessment: Acute on chronic hypoxemic respiratory failure. COPD exacerbation. Stage IV non-small cell lung cancer, metastatic to the brain. RLL bronchitis and RML pneumonia. Possible sepsis and shock. Improving. DNR 1. Plan: Continue supplemental oxygen. Continue BiPAP at bedtime and as needed. We titrated supplemental oxygen and BiPAP settings to patients needs per clinical protocol. We will monitor patients response closely. We will continue monitoring patients blood pressure closely and if indicated we will start Perfecto. Continue antibiotics including Vancomycin and Zosyn, on Day 3. Continue Solu-Medrol. We are weaning Solu-Medrol from 60 mg to 40 mg. Continue bronchodilators. Total evaluation time in minutes: 34.
[2019-07-18] MEDS: MELATONIN PO SCH (20:04)
[2019-07-19] MEDS: KEPPRA 750 MG in NS 100 ML IV SCH ×2 (01:11→12:48)
[2019-07-19] MEDS: ZOSYN 3.375 GM in NS 50 ML IV SCH ×4 (03:30→20:32)
[2019-07-19] MEDS: SOLU-MEDROL IV SCH ×3 (03:30→17:05)
[2019-07-19] MEDS: ATROVENT NEB INH SCH ×4 (03:58→22:53)
[2019-07-19] MEDS: XOPENEX NEB INH SCH ×4 (03:58→22:53)
[2019-07-19 05:54] LABS: HEMATOCRIT 34.1 % (42.0-52.0); HEMOGLOBIN 10.6 g/dL (14.0-18.0); IMM GRAN# 0.03 X1000 (0.0-0.04); IMM GRAN% 0.2 % (0.0-0.5); LYMPH# 0.49 X1000 (1.2-3.4); MCH 28.5 PG (27-31); MCHC 31.1 g/dL (33-37); MCV 91.7 FL (81-99); MONO# 0.02 X1000 (0.11-0.59); MONO% 0.2 % (1.7-9.3); MPV 8.5 FL (7.4-10.4); NEUT# 11.67 X1000 (1.4-6.5); NEUT% 95.6 % (42.2-75.2); PLT 394 X1000 (130-400); RBC 3.72 XMIL (4.7-6.1); RDW 16.9 % (11.5-14.5); WBC 12.21 X1000 (4.8-10.8)
[2019-07-19] MEDS: HUMULIN R SUBQ SCH ×4 (06:08→21:00)
[2019-07-19 06:09] LABS: AGAP 10; ALB/GLOB RATIO 0.9; ALBUMIN 2.8 g/dL (3.5-5.0); ALKALINE PHOSPHATASE 51 U/L (32-122); BUN 9 mg/dL (8-22); CALCIUM 8.1 mg/dL (8.8-10.2); CHLORIDE 98 mmol/L (98-107); COSMO 284; CREATININE 0.4 mg/dL (0.7-1.2); ESTIMATED GFR > 60; GLUCOSE 141 mg/dL (70-104); GOT 32 U/L (10-34); GPT 20 U/L (10-44); POTASSIUM 3.2 mmol/L (3.5-5.1); SODIUM 142 mmol/L (136-145); TCO2 34 mmol/L (25-35); TOTAL BILIRUBIN 0.29 mg/dL (0.20-1.00); TOTAL PROTEIN 5.8 g/dL (6.3-8.3)
[2019-07-19] MEDS: PRILOSEC PO SCH (06:09)
--- NOTE | 2019-07-19 07:43 | Diag Imaging Result Doc PS360 ---
CHEST-1 VIEW - 07/19/2019 INDICATION: SOB COMPARISON: 07/17/2019 FINDINGS: There has been decrease in the bibasilar linear atelectasis. No new or focal infiltrates. Stable right hilar enlargement consistent with adenopathy or mass. Heart size remains normal. IMPRESSION: Improvement from prior. Electronically signed by Andrey Sharma 07/19/2019 7:41 AM
[2019-07-19] MEDS: VANCOMYCIN 1,600 MG in NS 250 ML IV SCH (08:29)
[2019-07-19] MEDS: COLACE PO SCH ×2 (08:29→20:32)
[2019-07-19] MEDS: MUCINEX PO SCH ×2 (08:29→20:32)
[2019-07-19] MEDS: MYCOSTATIN SUSP PO SCH ×4 (08:29→20:32)
[2019-07-19] MEDS: DULCOLAX PR SCH ×2 (08:29→20:33)
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
--- NOTE | 2019-07-19 14:40 | HEMO/ONC CONSULTATION ---
DATE: 07/19/2019 CHIEF COMPLAINT: Non-small cell lung cancer. HISTORY OF PRESENT ILLNESS: Mr. Magallon is a pleasant 59-year-old male well known to Dr. Askew with a history of stage IV non-small cell lung cancer who has had recent progression of disease. The patient is status post cycle 2 of carboplatin, Alimta and Keytruda on 07/15/2019. The patient reports that he has not felt well for several days with increasing shortness of breath and worsening cough. The patient was sent to [facility] by [facility] secondary to increasing dyspnea and low oxygen saturation. Of note when the patient was seen in clinic for treatment, he had reported no cough and was not dyspneic. Vital signs were stable at that time. The patient was alert and oriented x3. Upon presentation to [facility] Emergency Department, the patient was found to have an oxygen saturation of 88% on non-rebreather that was placed in transport. Initial temp was found to be 99.9 with a heart rate of 147 and respirations of 28. Chest x-ray did reveal right hemidiaphragm elevation with increase in right perihilar mass which was known. No pleural effusion was seen. Atelectasis was seen in the lower right lung. The patient was admitted for questionable pneumonia with presumed sepsis. We are consulted as the patient is well known to us. PAST MEDICAL HISTORY: 1. Metastatic non-small cell lung cancer, adenocarcinoma histology. 2. Gastroesophageal reflux disease. 3. Hypertension. 4. Osteoarthritis. 5. Polyneuropathy. 6. History of spinal cord injury. 7. COPD. 8. Seizure disorder. 9. History of subarachnoid hemorrhage secondary to fall from a ladder. 10. Nicotine dependence. 11. Mood disorder. PAST SURGICAL HISTORY: 1. Appendectomy. 2. Lung biopsy. 3. Inguinal hernia repair. SOCIAL HISTORY: The patient is a former 1 pack a day smoker for multiple years. He quit smoking approximately 1 year ago. He does not use alcohol or illicit drugs. He resides at [facility] in [place], [place]. FAMILY HISTORY: Significant for a father who secondary to throat and lung cancer and a brother who secondary to brain cancer. MEDICATIONS ON ADMISSION: 1. Tessalon Perles. 2. Symbicort. 3. Buspirone. 4. Super calcium vitamin D3. 5. Colace. 6. Marinol. 7. Duloxetine. 8. Folic acid. 9. Guaifenesin. 10. Paauilo. 11. Atrovent nebulizer. 12. Xopenex. 13. Keppra. 14. Ativan. 15. Mylanta. 16. Milk of magnesia. 17. Melatonin. 18. Calmoseptine. 19. Mirtazapine. 20. Multivitamins. 21. NicoDerm patch. 22. Prilosec. 23. Zofran. 24. Potassium chloride ER. 25. Seroquel. 26. Liquid protein fortifier. ALLERGIES: The patient has no known drug allergies. REVIEW OF SYSTEMS: A 14 point review of systems was obtained and is negative except for mentioned in HPI. PHYSICAL EXAMINATION: General: Mr. Magallon is a 59-year-old male lying supine in bed somewhat dyspneic on BiPAP, but in no immediate distress. Vital Signs: Temperature 99.6, blood pressure 149/89, heart rate 141, respirations 44, O2 saturation 95% on BiPAP. HEENT: Normocephalic, atraumatic. Mucous membranes are somewhat dry and pink. Sclerae anicteric. Extraocular movements intact. Neck: Supple. Lungs: With wheezes in the left chest ho and decreased breath sounds on the right. Abdomen: Soft nondistended, nontender. Bowel sounds positive all quadrants. No rebound or guarding noted. Extremities: With 1+ bilateral lower extremity edema. Dermatologic: No rashes or lesions. The patient does have multiple bruises covering bilateral upper extremities. Neurologic: The patient is awake, He is oriented x2, confused to date and situation. He does have bilateral lower extremity weakness secondary to spinal cord injury. No focal deficit. LABORATORY DATA: Hemoglobin 13.3, hematocrit 44.2, white blood cell count is 28.87, platelets 459,000. Sodium 143, potassium 4.5, chloride 103, CO2 is 24, BUN 9, creatinine 0.6 and glucose is 183. IMAGING STUDIES: Chest x-ray reveals a known increase in right perihilar mass. ASSESSMENT AND PLAN: 1. Stage IV non-small cell lung cancer with recent progression. He is status post cycle 2 of carboplatin, Alimta, and Keytruda on 07/15/2019. We will hold further treatment until the patient's acute illness improves. 2. Pneumonia versus pneumonitis. We will check CT of the chest. The patient is currently on prophylactic antibiotics and steroids. 3. Respiratory failure secondary to #2 with some element of chronic obstructive pulmonary disease. The patient is currently on BiPAP. Pulmonology has been consulted. 4. Fever of 104.2 on admission, questionably related to sepsis. Blood cultures are currently pending. The patient is on prophylactic antibiotics. 5. We will follow along with you and make further recommendations pending outcomes. The above reflects the history, exam, assessment, and plan of Dr. Askew. Dictated by RANDOLPH Alexis for Ko Askew MD cc: RANDOLPH Alexis MD
--- NOTE | 2019-07-19 20:07 | PROVIDER PROGRESS NOTE ---
Progress Note Dr. Johnson Progress Note/Pulmonary and or critical care Subjective: The patient is lying in bed on NC 4L and tolerates well. He states he is feeling better and he asks when he will be discharged. No family at the bedside. Input was appreciated from Dr. Wheeler and other teams on the case. Objective: Vital Signs: T 97.7 (No fever in last 24 hours), [place] 100, RR 20, BP 147/87 and SaO2 95% on O2 @4L Physical Examination: General: Lying in bed on NC 4L. No acute distress noted. HEENT: Normocephalic. Trachea midline. Mucosa pink and slightly dry. Chest: Even and unlabored. No increased work of breathing noted. Symmetrical excursion. Improved air entry bilaterally with no wheezing noted. CVS: S1 and S2 appreciated. Abdomen: Slightly firm. Slightly distended. Nontender. Bowel sounds noted. Extremities: No edema. No cyanosis. No clubbing. Discoloration noted. Neuro: Awake and alert. Follow simple commands. Answer simple questions. Dr. Johnson did assessment and management. RANDOLPH Turner did scribing only. Labs and Radiology: Laboratory Results 07/19/19 07/19/19 07/19/19 05:00 05:00 06:07 WBC 12.21 H RBC 3.72 L Hgb 10.6 L Hct 34.1 L MCV 91.7 MCH 28.5 MCHC 31.1 L RDW Std Deviation 16.9 H Plt Count 394 MPV 8.5 Immature Gran % (Auto) 0.2 Neut % (Auto) 95.6 H Lymph % (Auto) 4.0 L [place] % (Auto) 0.2 L Eos % (Auto) 0.0 Baso % (Auto) 0.0 Immature Gran # (Auto) 0.03 Neut # (Auto) 11.67 H Lymph # (Auto) 0.49 L [place] # (Auto) 0.02 L Eos # (Auto) 0.00 Baso # (Auto) 0.00 Sodium 142 Potassium 3.2 L Chloride 98 Carbon Dioxide 34 Anion Gap 10 BUN 9 Creatinine 0.4 L Estimated GFR/1.73 m2 > 60 BUN/Creatinine Ratio 23 Glucose 141 H POC Glucose 133 H Calculated Osmolality 284 Calcium 8.1 L Total Bilirubin 0.29 AST 32 ALT 20 Alkaline Phosphatase 51 Total Protein 5.8 L Albumin 2.8 L Globulin 3.0 Albumin/Globulin Ratio 0.9 07/19/19 07/19/19 10:14 16:18 WBC RBC Hgb Hct MCV MCH MCHC RDW Std Deviation Plt Count MPV Immature Gran % (Auto) Neut % (Auto) Lymph % (Auto) [place] % (Auto) Eos % (Auto) Baso % (Auto) Immature Gran # (Auto) Neut # (Auto) Lymph # (Auto) [place] # (Auto) Eos # (Auto) Baso # (Auto) Sodium Potassium Chloride Carbon Dioxide Anion Gap BUN Creatinine Estimated GFR/1.73 m2 BUN/Creatinine Ratio Glucose POC Glucose 136 H 200 H Calculated Osmolality Calcium Total Bilirubin AST ALT Alkaline Phosphatase Total Protein Albumin Globulin Albumin/Globulin Ratio Assessment: Acute on chronic hypoxemic respiratory failure. COPD exacerbation. Stage IV non-small cell lung cancer, metastatic to the brain. RLL bronchitis and RML pneumonia. Possible sepsis and shock. Improving. DNR 1. Plan: Continue supplemental oxygen. Continue BiPAP at bedtime and as needed. We titrated supplemental oxygen and BiPAP settings to patients needs per clinical protocol. We will monitor patients response closely. We will continue monitoring patients blood pressure closely and if indicated we will start Perfecto. Continue antibiotics Continue Solu-Medrol. Continue bronchodilators. Total evaluation time in minutes: 32.
[2019-07-19] MEDS: MELATONIN PO SCH (20:32)
[2019-07-20] MEDS: KEPPRA 750 MG in NS 100 ML IV SCH ×2 (00:30→11:51)
[2019-07-20] MEDS: SOLU-MEDROL IV SCH ×5 (00:32→21:34)
[2019-07-20] MEDS: XOPENEX NEB INH SCH ×4 (03:59→22:14)
[2019-07-20] MEDS: ATROVENT NEB INH SCH ×4 (04:00→22:14)
[2019-07-20] MEDS: ZOSYN 3.375 GM in NS 50 ML IV SCH ×4 (04:00→21:19)
[2019-07-20] MEDS: VANCOMYCIN 1,250 MG in NS 250 ML IV SCH ×2 (05:35→17:05)
[2019-07-20] MEDS: HUMULIN R SUBQ SCH ×4 (06:36→21:23)
[2019-07-20] MEDS: PRILOSEC PO SCH (07:55)
[2019-07-20 08:16] LABS: EOS# 0.01 X1000 (0.0-0.7); EOS% 0.1 % (0.0-10.0); HEMATOCRIT 33.5 % (42.0-52.0); HEMOGLOBIN 10.2 g/dL (14.0-18.0); IMM GRAN# 0.03 X1000 (0.0-0.04); IMM GRAN% 0.4 % (0.0-0.5); LYMPH# 0.43 X1000 (1.2-3.4); LYMPH% 5.1 % (20.5-51.1); MCH 28.2 PG (27-31); MCHC 30.4 g/dL (33-37); MCV 92.5 FL (81-99); MONO# 0.02 X1000 (0.11-0.59); MONO% 0.2 % (1.7-9.3); MPV 8.3 FL (7.4-10.4); NEUT# 7.98 X1000 (1.4-6.5); NEUT% 94.2 % (42.2-75.2); PLT 337 X1000 (130-400); RBC 3.62 XMIL (4.7-6.1); RDW 16.9 % (11.5-14.5); WBC 8.47 X1000 (4.8-10.8)
[2019-07-20 08:18] LABS: AGAP 8; ALBUMIN 2.9 g/dL (3.5-5.0); BUN 9 mg/dL (8-22); CHLORIDE 97 mmol/L (98-107); COSMO 271; CREATININE 0.3 mg/dL (0.7-1.2); ESTIMATED GFR > 60; GLUCOSE 111 mg/dL (70-104); PHOSPHORUS 1.7 mg/dL (2.7-4.5); SODIUM 136 mmol/L (136-145); TCO2 31 mmol/L (25-35)
[2019-07-20] MEDS ORDERED: KLOR-CON PO ONE (08:39)
[2019-07-20] MEDS ORDERED: SODIUM PHOSPHATE 35 MMOL in NS 250 ML IV ONE (08:39)
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
[2019-07-20] MEDS: MUCINEX PO SCH ×2 (09:55→21:22)
[2019-07-20] MEDS: DULCOLAX PR SCH ×2 (09:55→21:22)
[2019-07-20] MEDS: MYCOSTATIN SUSP PO SCH ×4 (09:55→21:22)
[2019-07-20] MEDS: COLACE PO SCH ×2 (09:55→21:22)
[2019-07-20 10:15] LABS: BANDS 2 % (0-1); LYMPHS 8 % (21-51); SEGS 90 % (42-75)
[2019-07-20] MEDS ORDERED: MILK OF MAGNESIA PO ONE (11:23)
[2019-07-20] MEDS: TYLENOL PO PRN (12:20)
--- NOTE | 2019-07-20 16:49 | PROVIDER PROGRESS NOTE ---
Progress Note Dr. Johnson Progress Note/Pulmonary and or critical care Subjective: The patient is lying in bed sleeping on NC 4L. No family at the bedside. Input was appreciated from Dr. Wheeler and other teams on the case. Objective: Vital Signs: T 98.4 (No fever in last 24 hours), [place] 90, RR 22, BP 132/79 and SaO2 95% on O2 @4L Physical Examination: General: Lying in bed sleeping on NC 4L. No acute distress noted. HEENT: Normocephalic. Trachea midline. Mucosa pink and slightly dry. Chest: Even and unlabored. No increased work of breathing noted. Symmetrical excursion. Improved air entry bilaterally with no wheezing noted. CVS: S1 and S2 appreciated. Abdomen: Slightly firm. Slightly distended. Nontender. Bowel sounds noted. Extremities: No edema. No cyanosis. No clubbing. Discoloration noted. Neuro: Awake and alert. Follow simple commands. Answer simple questions. Dr. Johnson did assessment and management. RANDOLPH Turner did scribing only. Labs and Radiology: Laboratory Results 07/19/19 07/20/19 07/20/19 20:44 01:36 05:32 WBC RBC Hgb Hct MCV MCH MCHC RDW Std Deviation Plt Count MPV Immature Gran % (Auto) Neut % (Auto) Lymph % (Auto) [place] % (Auto) Eos % (Auto) Baso % (Auto) Immature Gran # (Auto) Neut # (Auto) Lymph # (Auto) [place] # (Auto) Eos # (Auto) Baso # (Auto) Segmented Neutrophils Band Neutrophils Lymphocytes Sodium Potassium Chloride Carbon Dioxide Anion Gap BUN Creatinine Estimated GFR/1.73 m2 BUN/Creatinine Ratio Glucose POC Glucose 219 H 82 D Calculated Osmolality Calcium Phosphorus Albumin Random Vancomycin 6.50 07/20/19 07/20/19 07/20/19 07:22 07:22 11:34 WBC 8.47 RBC 3.62 L Hgb 10.2 L Hct 33.5 L MCV 92.5 MCH 28.2 MCHC 30.4 L RDW Std Deviation 16.9 H Plt Count 337 MPV 8.3 Immature Gran % (Auto) 0.4 Neut % (Auto) 94.2 H Lymph % (Auto) 5.1 L [place] % (Auto) 0.2 L Eos % (Auto) 0.1 Baso % (Auto) 0.0 Immature Gran # (Auto) 0.03 Neut # (Auto) 7.98 H Lymph # (Auto) 0.43 L [place] # (Auto) 0.02 L Eos # (Auto) 0.01 Baso # (Auto) 0.00 Segmented Neutrophils 90 H Band Neutrophils 2 H Lymphocytes 8 L Sodium 136 Potassium 3.0 L Chloride 97 L Carbon Dioxide 31 Anion Gap 8 BUN 9 Creatinine 0.3 L Estimated GFR/1.73 m2 > 60 BUN/Creatinine Ratio 30 Glucose 111 H POC Glucose 187 H D Calculated Osmolality 271 Calcium 8.0 L Phosphorus 1.7 L Albumin 2.9 L Random Vancomycin 07/20/19 16:14 WBC RBC Hgb Hct MCV MCH MCHC RDW Std Deviation Plt Count MPV Immature Gran % (Auto) Neut % (Auto) Lymph % (Auto) [place] % (Auto) Eos % (Auto) Baso % (Auto) Immature Gran # (Auto) Neut # (Auto) Lymph # (Auto) [place] # (Auto) Eos # (Auto) Baso # (Auto) Segmented Neutrophils Band Neutrophils Lymphocytes Sodium Potassium Chloride Carbon Dioxide Anion Gap BUN Creatinine Estimated GFR/1.73 m2 BUN/Creatinine Ratio Glucose POC Glucose 171 H Calculated Osmolality Calcium Phosphorus Albumin Random Vancomycin Assessment: Acute on chronic hypoxemic respiratory failure. COPD exacerbation. Stage IV non-small cell lung cancer, metastatic to the brain. RLL bronchitis and RML pneumonia. Possible sepsis and shock. Improving. DNR 1. Plan: Continue supplemental oxygen. Continue BiPAP at bedtime and as needed. We titrated supplemental oxygen and BiPAP settings to patients needs per clinical protocol. We will monitor patients response closely. We will continue monitoring patients blood pressure closely and if indicated we will start Perefcto. Continue antibiotics Continue Solu-Medrol. Continue bronchodilators. Total evaluation time in minutes: 33.
[2019-07-20] MEDS: MELATONIN PO SCH (21:22)
[2019-07-21] MEDS: KEPPRA 750 MG in NS 100 ML IV SCH ×2 (00:05→11:44)
[2019-07-21] MEDS: ZOSYN 3.375 GM in NS 50 ML IV SCH ×4 (02:37→21:26)
[2019-07-21] MEDS: VANCOMYCIN 1,250 MG in NS 250 ML IV SCH (03:15)
[2019-07-21] MEDS: SOLU-MEDROL IV SCH ×4 (03:16→21:25)
[2019-07-21] MEDS: XOPENEX NEB INH SCH ×4 (03:43→23:15)
[2019-07-21] MEDS: ATROVENT NEB INH SCH ×4 (03:43→23:14)
[2019-07-21] MEDS: PRILOSEC PO SCH (06:33)
[2019-07-21] MEDS: HUMULIN R SUBQ SCH ×4 (06:33→21:26)
[2019-07-21 07:31] LABS: AGAP 7; ALBUMIN 3.3 g/dL (3.5-5.0); BUN 9 mg/dL (8-22); CALCIUM 8.5 mg/dL (8.8-10.2); CHLORIDE 100 mmol/L (98-107); COSMO 280; CREATININE 0.4 mg/dL (0.7-1.2); ESTIMATED GFR > 60; GLUCOSE 158 mg/dL (70-104); PHOSPHORUS 2.1 mg/dL (2.7-4.5); POTASSIUM 4.2 mmol/L (3.5-5.1); SODIUM 139 mmol/L (136-145); TCO2 32 mmol/L (25-35)
[2019-07-21] MEDS: TYLENOL PO PRN (08:37)
[2019-07-21] MEDS: COLACE PO SCH ×2 (08:38→21:26)
[2019-07-21] MEDS: MYCOSTATIN SUSP PO SCH ×4 (08:38→21:27)
[2019-07-21] MEDS: MUCINEX PO SCH ×2 (08:38→21:25)
[2019-07-21] MEDS: DULCOLAX PR SCH ×2 (08:39→21:26)
[2019-07-21 08:45] LABS: HEMATOCRIT 34.2 % (42.0-52.0); HEMOGLOBIN 10.7 g/dL (14.0-18.0); LYMPH# 0.43 X1000 (1.2-3.4); LYMPH% 5.4 % (20.5-51.1); MCH 29.1 PG (27-31); MCHC 31.3 g/dL (33-37); MCV 92.9 FL (81-99); MONO# 0.02 X1000 (0.11-0.59); MONO% 0.3 % (1.7-9.3); MPV 8.6 FL (7.4-10.4); NEUT# 7.47 X1000 (1.4-6.5); NEUT% 94.3 % (42.2-75.2); PLT 288 X1000 (130-400); RBC 3.68 XMIL (4.7-6.1); RDW 16.8 % (11.5-14.5); WBC 7.92 X1000 (4.8-10.8)
[2019-07-21 08:50] LABS: BANDS 2 % (0-1); LYMPHS 10 % (21-51); SEGS 88 % (42-75)
[2019-07-21] MEDS ORDERED: SODIUM PHOSPHATE 40 MMOL in NS 250 ML IV ONE (10:26)
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
[2019-07-21] MEDS: VANCOMYCIN 1,600 MG in NS 250 ML IV SCH (17:07)
--- NOTE | 2019-07-21 18:28 | PROVIDER PROGRESS NOTE ---
Progress Note Dr. Johnson Progress Note/Pulmonary and or critical care Subjective: The patient is lying in bed sleeping on RA. No family at the bedside. Input was appreciated from Dr. Wheeler and other teams on the case. Objective: Vital Signs: T 98.5 (No fever in last 24 hours), [place] 102, RR 18, BP 129/80 and SaO2 100 % on O2 RA Physical Examination: General: Lying in bed sleeping. No acute distress noted. HEENT: Normocephalic. Trachea midline. Mucosa pink and slightly dry. Chest: Even and unlabored. No increased work of breathing noted. Symmetrical excursion. Improved air entry bilaterally with no wheezing noted. CVS: S1 and S2 appreciated. Abdomen: Slightly firm. Slightly distended. Nontender. Bowel sounds noted. Extremities: No edema. No cyanosis. No clubbing. Discoloration noted. Neuro: Awake and alert. Follow simple commands. Answer simple questions. Dr. Johnson did assessment and management. RANDOLPH Turner did scribing only. Labs and Radiology: Laboratory Results 07/20/19 07/21/19 07/21/19 21:01 05:39 06:25 WBC RBC Hgb Hct MCV MCH MCHC RDW Std Deviation Plt Count MPV Neut % (Auto) Lymph % (Auto) [place] % (Auto) Eos % (Auto) Baso % (Auto) Neut # (Auto) Lymph # (Auto) [place] # (Auto) Eos # (Auto) Baso # (Auto) Segmented Neutrophils Band Neutrophils Lymphocytes Sodium 139 Potassium 4.2 D Chloride 100 Carbon Dioxide 32 Anion Gap 7 BUN 9 Creatinine 0.4 L Estimated GFR/1.73 m2 > 60 BUN/Creatinine Ratio 23 Glucose 158 H POC Glucose 178 H 137 H Calculated Osmolality 280 Calcium 8.5 L Phosphorus 2.1 L Albumin 3.3 L Random Vancomycin 07/21/19 07/21/19 07/21/19 06:25 10:52 14:39 WBC 7.92 RBC 3.68 L Hgb 10.7 L Hct 34.2 L MCV 92.9 MCH 29.1 MCHC 31.3 L RDW Std Deviation 16.8 H Plt Count 288 MPV 8.6 Neut % (Auto) 94.3 H Lymph % (Auto) 5.4 L [place] % (Auto) 0.3 L Eos % (Auto) 0.0 Baso % (Auto) 0.0 Neut # (Auto) 7.47 H Lymph # (Auto) 0.43 L [place] # (Auto) 0.02 L Eos # (Auto) 0.00 Baso # (Auto) 0.00 Segmented Neutrophils 88 H Band Neutrophils 2 H Lymphocytes 10 L Sodium Potassium Chloride Carbon Dioxide Anion Gap BUN Creatinine Estimated GFR/1.73 m2 BUN/Creatinine Ratio Glucose POC Glucose 114 H Calculated Osmolality Calcium Phosphorus Albumin Random Vancomycin 8.80 07/21/19 15:32 WBC RBC Hgb Hct MCV MCH MCHC RDW Std Deviation Plt Count MPV Neut % (Auto) Lymph % (Auto) [place] % (Auto) Eos % (Auto) Baso % (Auto) Neut # (Auto) Lymph # (Auto) [place] # (Auto) Eos # (Auto) Baso # (Auto) Segmented Neutrophils Band Neutrophils Lymphocytes Sodium Potassium Chloride Carbon Dioxide Anion Gap BUN Creatinine Estimated GFR/1.73 m2 BUN/Creatinine Ratio Glucose POC Glucose 134 H Calculated Osmolality Calcium Phosphorus Albumin Random Vancomycin Assessment: Acute on chronic hypoxemic respiratory failure. COPD exacerbation. Stage IV non-small cell lung cancer, metastatic to the brain. RLL bronchitis and RML pneumonia. Possible sepsis and shock. Improving. DNR 1. Plan: Continue supplemental oxygen. Continue BiPAP at bedtime and as needed. We titrated supplemental oxygen and BiPAP settings to patients needs per clinical protocol. We will monitor patients response closely. We will continue monitoring patients blood pressure closely and if indicated we will start Perfecto. Continue antibiotics Continue Solu-Medrol. Continue bronchodilators. Total evaluation time in minutes: 31.
[2019-07-21] MEDS ORDERED: HALDOL IM PRN (21:13)
[2019-07-21] MEDS ORDERED: HALDOL IV ONE (21:13)
[2019-07-21] MEDS: MELATONIN PO SCH (21:25)
[2019-07-22] MEDS: KEPPRA 750 MG in NS 100 ML IV SCH ×2 (00:33→14:15)
[2019-07-22] MEDS: SOLU-MEDROL IV SCH (02:46)
[2019-07-22] MEDS: NORCO-5 PO PRN (02:46)
[2019-07-22] MEDS: ZOSYN 3.375 GM in NS 50 ML IV SCH ×2 (02:46→11:12)
[2019-07-22] MEDS: ATROVENT NEB INH SCH ×2 (03:35→08:25)
[2019-07-22] MEDS: XOPENEX NEB INH SCH ×2 (03:35→08:25)
[2019-07-22] MEDS: VANCOMYCIN 1,600 MG in NS 250 ML IV SCH (04:31)
[2019-07-22] MEDS: PRILOSEC PO SCH (07:20)
[2019-07-22] MEDS: HUMULIN R SUBQ SCH ×2 (07:21→11:18)
[2019-07-22 08:17] LABS: AGAP 12; ALBUMIN 3.1 g/dL (3.5-5.0); BUN 8 mg/dL (8-22); CALCIUM 8.4 mg/dL (8.8-10.2); CHLORIDE 101 mmol/L (98-107); COSMO 275; CREATININE 0.4 mg/dL (0.7-1.2); ESTIMATED GFR > 60; GLUCOSE 84 mg/dL (70-104); PHOSPHORUS 2.3 mg/dL (2.7-4.5); POTASSIUM 3.9 mmol/L (3.5-5.1); SODIUM 139 mmol/L (136-145); TCO2 26 mmol/L (25-35)
[2019-07-22 08:22] LABS: HEMATOCRIT 36.8 % (42.0-52.0); HEMOGLOBIN 11.3 g/dL (14.0-18.0); MCH 28.2 PG (27-31); MCHC 30.7 g/dL (33-37); MCV 91.8 FL (81-99); MPV 8.5 FL (7.4-10.4); PLT 267 X1000 (130-400); RBC 4.01 XMIL (4.7-6.1); RDW 16.7 % (11.5-14.5); WBC 11.19 X1000 (4.8-10.8)
[2019-07-22 08:30] LABS: LYMPHS 8 % (21-51); MONO 1 % (1-9); SEGS 91 % (42-75)
[2019-07-22] MEDS ORDERED: SOLU-MEDROL IV SCH (09:00)
[2019-07-22] MEDS: COLACE PO SCH (11:17)
[2019-07-22] MEDS: MUCINEX PO SCH (11:18)
[2019-07-22] MEDS: DULCOLAX PR SCH (11:18)
[2019-07-22] MEDS: MYCOSTATIN SUSP PO SCH ×2 (11:18→14:17)
[2019-07-22 12:05] VITALS: BP 156/82
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
--- NOTE | 2019-07-22 17:51 | PROVIDER PROGRESS NOTE ---
Progress Note Dr. Johnson Progress Note/Pulmonary and or critical care Subjective: The patient is lying in bed on NC 3L and tolerates well. He states he is ok. He is asking about home oxygen therapy. Staff at the bedside are cleaning him. No family at the bedside. Input was appreciated from Dr. Wheeler and other teams on the case. Objective: Vital Signs: T 98.0 (No fever in last 24 hours), MN 98, RR 18, BP 152/77 and SaO2 98% on NC 3L. Physical Examination: General: Lying in bed on NC 3L. No acute distress noted. HEENT: Normocephalic. Trachea midline. Mucosa pink and slightly dry. Chest: Even and unlabored. No increased work of breathing noted. Symmetrical excursion. Mild occasional expiratory wheezing with good air entry bilaterally. CVS: S1 and S2 appreciated. Abdomen: Soft. Nontender. Bowel sounds noted. Extremities: No edema. No cyanosis. No clubbing. Discoloration noted. Neuro: Awake and alert. Follow simple commands. Answer simple questions. Labs and Radiology: Laboratory Results 07/21/19 07/22/19 07/22/19 20:05 05:58 07:30 WBC RBC Hgb Hct MCV MCH MCHC RDW Std Deviation Plt Count MPV Neut % (Auto) Lymph % (Auto) [place] % (Auto) Eos % (Auto) Baso % (Auto) Neut # (Auto) Lymph # (Auto) [place] # (Auto) Eos # (Auto) Baso # (Auto) Segmented Neutrophils Lymphocytes Monocytes Sodium 139 Potassium 3.9 Chloride 101 Carbon Dioxide 26 Anion Gap 12 BUN 8 Creatinine 0.4 L Estimated GFR/1.73 m2 > 60 BUN/Creatinine Ratio 20 Glucose 84 POC Glucose 205 H D 103 Calculated Osmolality 275 Calcium 8.4 L Phosphorus 2.3 L Albumin 3.1 L 07/22/19 07/22/19 07:30 11:15 WBC 11.19 H RBC 4.01 L Hgb 11.3 L Hct 36.8 L MCV 91.8 MCH 28.2 MCHC 30.7 L RDW Std Deviation 16.7 H Plt Count 267 MPV 8.5 Neut % (Auto) Not Reportable Lymph % (Auto) Not Reportable [place] % (Auto) Not Reportable Eos % (Auto) Not Reportable Baso % (Auto) Not Reportable Neut # (Auto) Not Reportable Lymph # (Auto) Not Reportable [place] # (Auto) Not Reportable Eos # (Auto) Not Reportable Baso # (Auto) Not Reportable Segmented Neutrophils 91 H Lymphocytes 8 L Monocytes 1 Sodium Potassium Chloride Carbon Dioxide Anion Gap BUN Creatinine Estimated GFR/1.73 m2 BUN/Creatinine Ratio Glucose POC Glucose 102 Calculated Osmolality Calcium Phosphorus Albumin Assessment: Acute on chronic hypoxemic respiratory failure. COPD exacerbation. Stage IV non-small cell lung cancer, metastatic to the brain. RLL bronchitis and RML pneumonia. Possible sepsis and shock. Resolved. DNR 1. Plan: Continue supplemental oxygen. Continue BiPAP at bedtime and as needed. We titrated supplemental oxygen and BiPAP settings to patients needs per clinical protocol. We will monitor patients response closely. Continue antibiotics including Vancomycin and Zosyn, on Day 7. Continue Solu-Medrol. We are weaning Solu-Medrol down. Continue bronchodilators. Discharge planning per Hospitalist.
== END 2019-07-22 15:15 | DRG 189 ==
LOC: SUPCPDRO → ED 23:25 → ICU 07-16 03:16 → SUATTDRO 07-16 03:16 → 3N 07-19 15:08
PROVIDERS: ATTEND Internal Medicine